=== PATIENT | female | born 1970 | race Caucasian/White ===

== ENCOUNTER → 2017-02-04 | Outpatient (CLI) | payer MEDICARE, OTHER ==
--- NOTE | 2017-02-04 11:09 | CT ---
EXAMINATION TYPE: CT soft tissue neck wo con DATE OF EXAM: 02/04/2017 HISTORY: Lump under chin, swelling, mass, R 22.1 COMPARISON: NONE CT DLP: 527.5 mGycm. Automated Exposure Control for Dose Reduction was Utilized. TECHNIQUE: CT scan of the neck is performed without contrast, axial images are obtained, coronal and sagittal reformatted images are reviewed. FINDINGS: Airway: No gross abnormality seen. Parotid/submandibular glands: No gross abnormality seen. Carotid/Vascular Structures: No abnormality evident on this noncontrast exam. Osseous Structures: Degenerative disc changes are noted in the visualized spine. Midline fusion anoma ly at C1 posteriorly is noted. Other: Multiple nonenlarged lymph nodes are present within the neck. No discrete mass evident in the submandibular location to account for patient's symptoms. Small nonpathologic nodes are present at th is level. IMPRESSION: No significant abnormality is seen.
== END | disposition home or self-care (01) ==
LOC: RADCTMAIN 09:19
PROVIDERS: ATTEND Family Medicine
DX: R22.1 Localized swelling, mass and lump, neck (principal)
CPT/HCPCS: 70490

== ENCOUNTER 2017-02-13 16:52 | Emergency (ER) | payer MEDICARE, OTHER ==
[2017-02-13 17:15] VITALS: RESP 18
--- NOTE | 2017-02-13 18:07 | ED ---
Skin/Abscess/FB HPI - General Chief complaint: Skin/Abscess/Foreign Body Stated complaint: Lump on neck Time Seen by Provider: 02/13/17 17:49 Source: patient, RN notes reviewed, old records reviewed Mode of arrival: ambulatory Limitations: no limitations - History of Present Illness Initial comments: This is a 46-year-old female presenting with to the with mother with chief complaint of a lump over her neck. Patient reports that they've had this lump for the past few weeks. They did see her primary care provider or Center in for a CAT scan. They state of the CAT scan was reviewed and negative. They report that over the past 24 hours patient has been complaining of pain of the lump over her neck. She reports that prior to that she had no pain. She denies any fever or chills or any other associated symptoms. She denies any difficulty swallowing. They report that they have a history of laryngeal cancer in her family and are concerned about. Patient is developmentally disabled. Patient is scheduled to have an ultrasound of her neck. Patient's mother reports that they're concerned that if her pain seems to get worse over the weekend they will not be able to see their primary care provider. - Related Data Home Medications Medication Instructions Recorded Confirmed Levothyroxine Sodium [Synthroid] 50 mcg PO DAILY 03/03/16 02/13/17 Cetirizine HCl [Zyrtec] 10 mg PO HS 02/13/17 02/13/17 Metoprolol Succinate (ER) [Toprol 12.5 mg PO DAILY 02/13/17 02/13/17 XL] Allergies Allergy/AdvReac Type Severity Reaction Status Date / Time bacitracin Allergy Rash/Hives Verified 02/13/17 18:17 [From Neosporin ([id number])] bacitracin zinc Allergy Rash/Hives Verified 02/13/17 18:17 [From Neosporin ([id number])] levofloxacin [From Levaquin] Allergy Rash/Hives Verified 02/13/17 18:17 neomycin sulfate Allergy Rash/Hives Verified 02/13/17 18:17 [From Neosporin ([id number])] polymyxin B Allergy Rash/Hives Verified 02/13/17 18:17 [From Neosporin ([id number])] Review of Systems ROS Statement: Those systems with pertinent positive or pertinent negative responses have been documented in the HPI. ROS Other: All systems not noted in ROS Statement are negative. Past Medical History Past Medical History: Coronary Artery Disease (CAD), Hypertension, Thyroid Disorder Additional Past Medical History / Comment(s): mentally impared History of Any Multi-Drug Resistant Organisms: None Reported Past Surgical History: Orthopedic Surgery Additional Past Surgical History / Comment(s): Fx Lt ankle-sx, skin lesions removed back and slin lesion removed from rt. butler Past Anesthesia/Blood Transfusion Reactions: No Reported Reaction Past Psychological History: No Psychological Hx Reported Smoking Status: Never smoker Past Alcohol Use History: None Reported Past Drug Use History: None Reported - Past Family History Father Family Medical History: Cancer, Hyperlipidemia, Hypertension, Myocardial Infarction ([place]) Additional Family Medical History / Comment(s): skin CA nose Mother Family Medical History: Hyperlipidemia, Hypertension General Exam - General Exam Comments Initial Comments: 46-year-old female. Patient does not appear to be in any acute distress. Limitations: no limitations General appearance: alert, in no apparent distress Head exam: Present: atraumatic, normocephalic, normal inspection Eye exam: Present: normal appearance, PERRL, EOMI. Absent: scleral icterus, conjunctival injection, periorbital swelling ENT exam: Present: normal exam, mucous membranes moist Neck exam: Present: normal inspection, tenderness (Patient reports tenderness over the superficial lump underneath her neck between her children and end of her neck. No redness or warmth to the neck.). Absent: meningismus, lymphadenopathy Respiratory exam: Present: normal lung sounds bilaterally. Absent: respiratory distress, wheezes, rales, rhonchi, stridor Cardiovascular Exam: Present: regular rate, normal rhythm, normal heart sounds. Absent: systolic murmur, diastolic murmur, rubs, gallop, clicks GI/Abdominal exam: Present: soft, normal bowel sounds. Absent: distended, tenderness, guarding, rebound, rigid Extremities exam: Present: normal inspection, full ROM, normal capillary refill. Absent: tenderness, pedal edema, joint swelling, calf tenderness Back exam: Present: normal inspection Neurological exam: Present: alert, oriented X3, CN II-XII intact Psychiatric exam: Present: normal affect, normal mood Skin exam: Present: warm, dry, intact, normal color. Absent: rash Course Vital Signs 02/13/17 17:09 Temperature 98.1 F Pulse Rate 102 H Respiratory 18 Rate Blood Pressure 134/82 O2 Sat by Pulse 98 Oximetry Medical Decision Making - Medical Decision Making This is a 46-year-old female presenting with to the with mother with chief complaint of a lump over her neck. Patient reports that they've had this lump for the past few weeks. They did see her primary care provider or Center in for a CAT scan. They state of the CAT scan was reviewed and negative. They report that over the past 24 hours patient has been complaining of pain of the lump over her neck. She reports that prior to that she had no pain. She denies any fever or chills or any other associated symptoms. She denies any difficulty swallowing. Ultrasound was reviewed and is consistent with a lipoma. Again patient has no other evidence of erythema or firmness to the neck mass. Discussion is follow-up with her primary care provider Juliana for her to surgery to have it removed. Patient states a mother and patient agree to plan will comply. Return parameters were discussed. - Radiology Data Radiology results: report reviewed Patient complains of a palpable solid oval soft tissue masses eyes are closed concerning tissue the size of 2.9 x 2.8 x 1.1 cm. The oval shaped mass is consistent with a lipoma. Sonographic features are benign. Disposition Clinical Impression: Lipoma of neck Disposition: HOME SELF-CARE Condition: Good Instructions: Lipoma (ED) Additional Instructions: Patient advised to follow-up with her primary care provider regards to surgical removal of the lipoma. This is a benign growth. Recommend take Motrin or Tylenol for further pain. Return to the emergency department if there are any alarming signs or symptoms that occur including shortness of breath or difficulty swallowing. Referrals: Rea Donovan DO [Primary Care Provider] - 1-2 days Time of Disposition: 18:59
--- NOTE | 2017-02-13 18:52 | US ---
EXAMINATION TYPE: US soft tissue neck DATE OF EXAM: 02/13/2017 COMPARISON: NONE CLINICAL HISTORY: Pain. EC patient with palpable inferior to chin and noted x 1 month. Patient compla ined of pain at palpable. Tech Impression: at patient's c/o palpable is solid, oval, soft tissue mass isoechoic to surrounding neck tissue with size of palpable = 2.9 x 2.8 x 1.1cm. IMPRESSION: There is an oval-shaped solid mass in the area of concern at the chin. Margins are sharp and sonograp hic features are consistent with a lipoma. Sonographic features are benign.
[2017-02-13 19:24] VITALS: BP 155/84; PULSE 90; TEMP 97.9
== END 2017-02-13 19:24 | disposition home or self-care (01) ==
LOC: EC 16:52
DX: D17.0 Benign lipomatous neoplasm of skin and subcutaneous tissue of head, face and neck (principal); E07.9 Disorder of thyroid, unspecified; I10 Essential (primary) hypertension; I25.10 Atherosclerotic heart disease of native coronary artery without angina pectoris; Z88.1 Allergy status to other antibiotic agents; Z79.899 Other long term (current) drug therapy
CPT/HCPCS: 76536; 99283

== ENCOUNTER 2020-04-22 17:18 | Inpatient (IN) | payer MEDICARE, OTHER ==
[2020-04-22] MEDS ORDERED: ONDANSETRON 4 MG/2 ML VIAL IVP STA (18:33)
[2020-04-22] MEDS ORDERED: KETOROLAC 15 MG/ML 1 ML VIAL IVP STA (18:33)
[2020-04-22] MEDS ORDERED: SODIUM CHLORIDE 0.9% 1,000 ML IV STA (18:33)
--- NOTE | 2020-04-22 18:55 | ED ---
Abdominal Pain HPI - General Source: patient, family Mode of arrival: wheelchair <Salima Carballo - Last Filed: 04/22/20 21:48> <Melissa Torrezah Pramod - Last Filed: 04/23/20 13:05> - General Chief Complaint: Abdominal Pain Stated Complaint: Abd pain, vomiting Time Seen by Provider: 04/22/20 18:02 - History of Present Illness Initial Comments: 49-year-old female patient presents to the emergency department today for evaluation of vomiting and abdominal pain. Mother states that this afternoon patient developed vomiting after eating lunch. States that she had her use of oral meet and anemia sandwich with chips. States that she's had 2-3 episodes of vomiting is complaining of generalized abdominal pain. Patient reports that the pain is in her upper abdomen mostly. They deny any constipation or diarrhea. Last bowel movement was yesterday. They deny any hematochezia, melena, hematemesis. He denies any fever or chills. She's had no previous abdominal surgeries. She does have a developmental delay and lives at home with her mot her. He denies any chance of . Patient denies any recent rash, cough, shortness of breath, chest pain, back pain, numbness, tingling, dizziness, weakness, hematuria, dysuria, urinary urgency, urinary frequency, headache, visual changes, or any other complaints. (Salima Carballo) - Related Data Home Medications Medication Instructions Recorded Confirmed Levothyroxine Sodium [Synthroid] 50 mcg PO DAILY 03/03/16 04/22/20 Cetirizine HCl [Zyrtec] 10 mg PO HS 02/13/17 04/22/20 Cholecalciferol [Vitamin D3 (25 2,000 unit PO MOTUWETHFR 04/22/20 04/22/20 Mcg = 1000 Iu)] Medroxyprogesterone Acetate 150 mg IM Q90D 04/22/20 04/22/20 [Depo-Provera] Potassium Chloride ER [K-Dur 10] 10 meq PO DAILY PRN 04/22/20 04/22/20 Unknown Water Pill 1 tab PO DAILY PRN 04/22/20 04/22/20 Allergies Allergy/AdvReac Type Severity Reaction Status Date / Time bacitracin Allergy Rash/Hives Verified 04/22/20 21:29 [From Neosporin ([id number])] bacitracin zinc Allergy Rash/Hives Verified 04/22/20 21:29 [From Neosporin ([id number])] levofloxacin [From Levaquin] Allergy Rash/Hives Verified 04/22/20 21:29 neomycin sulfate Allergy Rash/Hives Verified 04/22/20 21:29 [From Neosporin ([id number])] polymyxin B Allergy Rash/Hives Verified 04/22/20 21:29 [From Neosporin ([id number])] Review of Systems ROS Other: All systems not noted in ROS Statement are negative. <Salima Carballo - Last Filed: 04/22/20 21:48> ROS Other: All systems not noted in ROS Statement are negative. <Kathy Torrez - Last Filed: 04/23/20 13:05> ROS Statement: Those systems with pertinent positive or pertinent negative responses have been documented in the HPI. Past Medical History Past Medical History: Coronary Artery Disease (CAD), Hypertension, Thyroid Disorder Additional Past Medical History / Comment(s): mentally impared History of Any Multi-Drug Resistant Organisms: None Reported Past Surgical History: Orthopedic Surgery Additional Past Surgical History / Comment(s): Fx Lt ankle-sx, skin lesions removed back and slin lesion removed from rt. butler Past Anesthesia/Blood Transfusion Reactions: No Reported Reaction Past Psychological History: No Psychological Hx Reported Smoking Status: Never smoker Past Alcohol Use History: None Reported Past Drug Use History: None Reported - Past Family History Father Family Medical History: Cancer, Hyperlipidemia, Hypertension, Myocardial Infarction ([place]) Additional Family Medical History / Comment(s): skin CA nose Mother Family Medical History: Hyperlipidemia, Hypertension <Salima Carballo - Last Filed: 04/22/20 21:48> General Exam General appearance: alert, in no apparent distress, other (This is a well- developed, well-nourished adult female patient in no acute distress. Vital signs upon presentation are temperature 97.5F, pulse 103, respirations 19, blood pressure 150/83, pulse ox 98% on room air.) Eye exam: Present: normal appearance, PERRL, EOMI. Absent: scleral icterus, conjunctival injection, periorbital swelling ENT exam: Present: normal exam, normal oropharynx, mucous membranes moist Respiratory exam: Present: normal lung sounds bilaterally. Absent: respiratory distress, wheezes, rales, rhonchi, stridor Cardiovascular Exam: Present: regular rate, normal rhythm, normal heart sounds. Absent: systolic murmur, diastolic murmur, rubs, gallop, clicks GI/Abdominal exam: Present: soft, tenderness (Generalized, worse over the upper abdomen), normal bowel sounds. Absent: distended, guarding, rebound, rigid Neurological exam: Present: alert, oriented X3, CN II-XII intact Psychiatric exam: Present: normal affect, normal mood Skin exam: Present: warm, dry, intact, normal color. Absent: rash <Salima Carballo - Last Filed: 04/22/20 21:48> Course Vital Signs 04/22/20 04/22/20 04/22/20 17:30 18:32 19:37 Temperature 97.5 F L Pulse Rate 103 H 93 Respiratory 19 18 22 Rate Blood Pressure 150/83 146/72 O2 Sat by Pulse 98 95 Oximetry 04/22/20 21:41 Temperature 98.8 F Pulse Rate 108 H Respiratory 20 Rate Blood Pressure 165/95 O2 Sat by Pulse 95 Oximetry Medical Decision Making - Lab Data Result diagrams: 04/22/20 19:17 04/22/20 19:17 - EKG Data -: EKG Interpreted by Tn - Radiology Data Radiology results: report reviewed, image reviewed <SuzetteilsaSalima - Last Filed: 04/22/20 21:48> - Lab Data Result diagrams: 04/23/20 05:36 04/22/20 19:17 <Kathy Torrez - Last Filed: 04/23/20 13:05> - Medical Decision Making 49-year-old female patient who does have a developmental delay, here with mother for evaluation of abdominal pain and vomiting. Mother states that symptoms started just this afternoon. She has had 2-3 episodes of vomiting. Physical examination did reveal generalized abdominal tenderness worse over the upper abdomen. Labs reviewed and did reveal elevated white blood cell count at 16,000. She also had elevated lipase at greater than 20,000. CT of the abdomen and pelvis was ordered and showed fat stranding around the pancreas consistent with pancreatitis but no other abnormalities. Patient is given IV fluids and pain medications. Upon reevaluation she is resting comfortable in bed. Shortly after her CAT scan patient did start to cough and complain of nausea, mother was concerned for contrast ALLERGY so she was given medication for this. She had no rash, no wheezing, and seemed to calm down when talking to her. We will admit to the hospital for pancreatitis could obtain ultrasound in the morning. IV fluids and pain medicines are provided. Parent and patient verbalize understanding and agree with this plan. (Salima Carballo) I was available for consultation in the emergency department. The history and physical exam were done by the midlevel provider. I was consulted for this patients care. I reviewed the case with the midlevel provider and based on their presentation of the patient, I agree with the assessment, medical decision making and plan of care as documented. Chart was dictated using [employer] dictation software. Attempts were made to correct any dictation errors however some typographical errors may persist. Patient was seen during a national state of emergency due to the Covid-19 pandemic. (Kathy Torrez) - Lab Data Lab Results 04/22/20 04/22/20 04/22/20 Range/Units 19:17 19:17 19:17 WBC 16.3 H (3.8-10.6) k/uL RBC 5.13 (3.80-5.40) m/uL Hgb 14.0 (11.4-16.0) gm/dL Hct 44.4 (34.0-46.0) % MCV 86.7 (80.0-100.0) fL MCH 27.3 (25.0-35.0) pg MCHC 31.5 (31.0-37.0) g/dL RDW 13.6 (11.5-15.5) % Plt Count 289 (150-450) k/uL Neutrophils % 87 % Lymphocytes % 7 % Monocytes % 5 % Eosinophils % 1 % Basophils % 0 % Neutrophils # 14.3 H (1.3-7.7) k/uL Lymphocytes # 1.1 (1.0-4.8) k/uL Monocytes # 0.8 (0-1.0) k/uL Eosinophils # 0.1 (0-0.7) k/uL Basophils # 0.1 (0-0.2) k/uL Sodium (137-145) mmol/L Potassium (3.5-5.1) mmol/L Chloride (98-107) mmol/L Carbon Dioxide (22-30) mmol/L Anion Gap mmol/L BUN (7-17) mg/dL Creatinine (0.52-1.04) mg/dL Est GFR (CKD-EPI)AfAm (>60 ml/min/1.73 sqM) Est GFR (CKD-EPI)NonAf (>60 ml/min/1.73 sqM) Glucose (74-99) mg/dL Calcium (8.4-10.2) mg/dL Total Bilirubin (0.2-1.3) mg/dL AST (14-36) U/L ALT (4-34) U/L Alkaline Phosphatase (38-126) U/L Troponin I (0.000-0.034) ng/mL Total Protein (6.3-8.2) g/dL Albumin (3.5-5.0) g/dL Lipase (23-300) U/L Urine Color Yellow Urine Appearance Clear (Clear) Urine pH 5.5 (5.0-8.0) Ur Specific [place] 1.024 (1.001-1.035) Urine Protein 1+ H (Negative) Urine Glucose (UA) 2+ H (Negative) Urine Ketones 2+ H (Negative) Urine Blood Trace H (Negative) Urine Nitrite Negative (Negative) Urine Bilirubin Negative (Negative) Urine Urobilinogen <2.0 (<2.0) mg/dL Ur Leukocyte Esterase Trace H (Negative) Urine RBC 1 (0-5) /hpf Urine WBC 8 H (0-5) /hpf Ur Squamous Epith Cells 2 (0-4) /hpf Urine Bacteria Rare H (None) /hpf Urine Mucus Few H (None) /hpf Urine HCG, Qual Not Detected (Not Detectd) 04/22/20 04/22/20 Range/Units 19:17 19:17 WBC (3.8-10.6) k/uL RBC (3.80-5.40) m/uL Hgb (11.4-16.0) gm/dL Hct (34.0-46.0) % MCV (80.0-100.0) fL MCH (25.0-35.0) pg MCHC (31.0-37.0) g/dL RDW (11.5-15.5) % Plt Count (150-450) k/uL Neutrophils % % Lymphocytes % % Monocytes % % Eosinophils % % Basophils % % Neutrophils # (1.3-7.7) k/uL Lymphocytes # (1.0-4.8) k/uL Monocytes # (0-1.0) k/uL Eosinophils # (0-0.7) k/uL Basophils # (0-0.2) k/uL Sodium 140 (137-145) mmol/L Potassium 4.4 (3.5-5.1) mmol/L Chloride 107 (98-107) mmol/L Carbon Dioxide 20 L (22-30) mmol/L Anion Gap 13 mmol/L BUN 16 (7-17) mg/dL Creatinine 0.72 (0.52-1.04) mg/dL Est GFR (CKD-EPI)AfAm >90 (>60 ml/min/1.73 sqM) Est GFR (CKD-EPI)NonAf >90 (>60 ml/min/1.73 sqM) Glucose 183 H (74-99) mg/dL Calcium 9.6 (8.4-10.2) mg/dL Total Bilirubin 1.3 (0.2-1.3) mg/dL AST 26 (14-36) U/L ALT 14 (4-34) U/L Alkaline Phosphatase 100 (38-126) U/L Troponin I <0.012 (0.000-0.034) ng/mL Total Protein 8.2 (6.3-8.2) g/dL Albumin 4.3 (3.5-5.0) g/dL Lipase >47149 H (23-300) U/L Urine Color Urine Appearance (Clear) Urine pH (5.0-8.0) Ur Specific [place] (1.001-1.035) Urine Protein (Negative) Urine Glucose (UA) (Negative) Urine Ketones (Negative) Urine Blood (Negative) Urine Nitrite (Negative) Urine Bilirubin (Negative) Urine Urobilinogen (<2.0) mg/dL Ur Leukocyte Esterase (Negative) Urine RBC (0-5) /hpf Urine WBC (0-5) /hpf Ur Squamous Epith Cells (0-4) /hpf Urine Bacteria (None) /hpf Urine Mucus (None) /hpf Urine HCG, Qual (Not Detectd) - EKG Data EKG Comments: EKG obtained in 1902 shows normal sinus rhythm with a ventricular rate of 97, SD interval 152, QR spiritism 86, QT 356, QTC 452. No evidence of ST elevation or depression. (aSlima Carballo) - Radiology Data CT abdomen and pelvis with contrast was obtained. Report was reviewed in its entirety. Impression by Dr. Toro shows some fluid and fat stranding in the retroperitoneum around the pancreas and left and right anterior pararenal space. Minimal fluid in the pelvis. This could relate to pancreatitis. (Salima Carballo) Disposition Decision to Admit Reason: Admit from EC <Salima Carballo - Last Filed: 04/22/20 21:48> <Kathy Torrez - Last Filed: 04/23/20 13:05> Clinical Impression: Pancreatitis Disposition: ADMITTED IP TO THIS HOSP Condition: Serious
[2020-04-22 19:29] LABS: Basophils # (A) 0.1 k/uL (0-0.2); Basophils % (A) 0 %; Eosinophils # (A) 0.1 k/uL (0-0.7); Eosinophils % (A) 1 %; HCT 44.4 % (34.0-46.0); Lymphocytes # (A) 1.1 k/uL (1.0-4.8); Lymphocytes % (A) 7 %; MCH 27.3 pg (25.0-35.0); MCHC 31.5 g/dL (31.0-37.0); MCV 86.7 fL (80.0-100.0); Mean Platelet Volume 9.2; Monocytes # (A) 0.8 k/uL (0-1.0); Monocytes % (A) 5 %; Neutrophils # (A) 14.3 k/uL (1.3-7.7); Neutrophils % (A) 87 %; Platelet Count 289 k/uL (150-450); RBC 5.13 m/uL (3.80-5.40); RDW 13.6 % (11.5-15.5); WBC 16.3 k/uL (3.8-10.6)
[2020-04-22 19:35] LABS: ALT 14 U/L (4-34); AST 26 U/L (14-36); African American GFR (CKD) >90 (>60 ml/min/1.73 sqM); Albumin 4.3 g/dL (3.5-5.0); Alkaline Phosphatase 100 U/L (38-126); Anion Gap 13 mmol/L; Blood Urea Nitrogen 16 mg/dL (7-17); Calcium 9.6 mg/dL (8.4-10.2); Carbon Dioxide 20 mmol/L (22-30); Chloride 107 mmol/L (98-107); Glucose 183 mg/dL (74-99); Non-African American GFR(CKD) >90 (>60 ml/min/1.73 sqM); Potassium 4.4 mmol/L (3.5-5.1); Sodium 140 mmol/L (137-145); Total Bilirubin 1.3 mg/dL (0.2-1.3); Total Protein 8.2 g/dL (6.3-8.2)
[2020-04-22 19:52] LABS: Appearance,Urine Clear (Clear); Bacteria,Urine Rare /hpf; Bilirubin,Urine Negative (Negative); Blood,Urine Trace (Negative); Color,Urine Yellow; Glucose,Urine (UA) 2+ (Negative); Leukocyte Esterase,Urine Trace (Negative); Mucus,Urine Few /hpf; Nitrite,Urine Negative (Negative); PH, Urine 5.5 (5.0-8.0); Protein,Urine 1+ (Negative); RBC,Urine 1 /hpf (0-5); Specific Gravity,Urine 1.024 (1.001-1.035); Squamous Epithelial Cell,Urine 2 /hpf (0-4); Urobilinogen,Urine <2.0 mg/dL (<2.0); WBC,Urine 8 /hpf (0-5)
[2020-04-22 19:56] LABS: Ketones,Urine 2+ (Negative)
[2020-04-22] MEDS ORDERED: methylPREDNISolone SOD SUCCI 125 MG/2 ML VIAL IV STA (20:20)
[2020-04-22] MEDS ORDERED: FAMOTIDINE 20 MG/2 ML VIAL IV STA (20:20)
[2020-04-22] MEDS ORDERED: diphenhydrAMINE 50 MG/ML 1 ML VIAL IVP STA (20:20)
--- NOTE | 2020-04-22 20:47 | CT ---
EXAMINATION TYPE: CT abdomen pelvis w con DATE OF EXAM: 04/22/2020 COMPARISON: None HISTORY: Generalized abdominal pain and vomiting. CT DLP: 3153.9 mGycm Automated exposure control for dose reduction was used. CONTRAST: Performed with IV Contrast, patient injected with 100ml mL of Isovue 300. There is some mild atelectasis at the lung bases. Heart is borderline enlarged. Liver spleen stomach gallbladder appear intact. There is some fat stranding around the pancreas exten ding into the small bowel mesentery. There is no adrenal mass. Kidneys show satisfactory contrast opacification. There is no hydronephrosi s. Delayed images show normal renal excretion. There is 1 cm cortical cyst upper pole left kidney. Th ere is no retroperitoneal adenopathy. There is mild free fluid in the pelvis. Bladder distends smooth ly. There is no inguinal hernia. There is no ascites. There is no evidence of a bowel obstruction. Th ere is no free air. Lumbar vertebra have normal spacing and alignment. Posterior elements are intact. Bony pelvis appears intact. Hip joints appear normal. Uterus is anteverted. There is no evidence of a pelvic mass. Appendix is not definitely seen. There is no sign of thickened appendix. IMPRESSION: There is some fluid and fat stranding in the retroperitoneum around the pancreas and left and right a nterior pararenal space. Minimal fluid in the pelvis. This could relate to pancreatitis.
[2020-04-22] MEDS ORDERED: SODIUM CHLORIDE 0.9% 1,000 ML IV ONE (20:56)
[2020-04-22] MEDS ORDERED: NALOXONE 0.4 MG/ML 1 ML VIAL IV PRN (21:07)
[2020-04-22] MEDS ORDERED: ONDANSETRON 4 MG/2 ML VIAL IVP PRN (21:07)
[2020-04-22] MEDS: SODIUM CHLORIDE 0.9% 1,000 ML IV SCH (21:17)
[2020-04-23] MEDS: MORPHINE SULFATE 4 MG/ML SYRINGE IV PRN ×2 (00:23→05:09)
[2020-04-23] MEDS: SODIUM CHLORIDE 0.9% 1,000 ML IV SCH ×4 (03:58→22:24)
[2020-04-23 06:06] LABS: Basophils % (A) 0 %; Eosinophils # (A) 0.1 k/uL (0-0.7); Eosinophils % (A) 0 %; HCT 39.8 % (34.0-46.0); HGB 12.8 gm/dL (11.4-16.0); Lymphocytes # (A) 1.2 k/uL (1.0-4.8); Lymphocytes % (A) 7 %; MCH 27.9 pg (25.0-35.0); Monocytes # (A) 0.4 k/uL (0-1.0); Monocytes % (A) 2 %; Neutrophils # (A) 16.5 k/uL (1.3-7.7); Neutrophils % (A) 91 %; Platelet Count 331 k/uL (150-450); RBC 4.58 m/uL (3.80-5.40); RDW 13.7 % (11.5-15.5); WBC 18.2 k/uL (3.8-10.6)
--- NOTE | 2020-04-23 09:23 | US ---
EXAMINATION TYPE: US abdomen limited DATE OF EXAM: 04/23/2020 COMPARISON: CT abdomen pelvis 04/22/2020 CLINICAL HISTORY: Acute Pancreatitis. Pancreatitis exam limited due to body habitus EXAM MEASUREMENTS: Liver Length: 15.7 cm Gallbladder Wall: .2 cm CBD: .7 cm Right Kidney: 9.0 x 4.8 x 4.2 cm Pancreas: Obscured by bowel gas Liver: Increased attenuation Gallbladder: No stones seen Evidence for sonographic Hanson's sign: No CBD: Upper limits Right Kidney: No hydronephrosis or masses seen IMPRESSION: 1. Moderate fatty infiltration of the liver. 2. No acute changes to account for pain. Exam has limitation limiting evaluation for acute pancreatit is. Suspicious changes not identified by ultrasound.
[2020-04-23] MEDS: CHOLECALCIFEROL 1,000 UNIT TAB PO SCH (12:11)
[2020-04-23] MEDS ORDERED: ALPRAZolam 0.25 MG TAB PO PRN (14:53)
[2020-04-23] MEDS ORDERED: POTASSIUM CHLORIDE ER 10 MEQ TAB.ER.PRT PO PRN (14:53)
[2020-04-23] MEDS ORDERED: BUMETANIDE 1 MG TAB PO PRN (14:53)
[2020-04-23] MEDS ORDERED: MEROPENEM 1 GM in SODIUM CHLORIDE 0.9% 100 ML IVPB ONE (16:00)
[2020-04-23] MEDS: HEPARIN SODIUM,PORCINE 5,000 UNIT/ML 1 ML VIAL SQ SCH ×2 (16:23→20:23)
[2020-04-23] MEDS: PANTOPRAZOLE 40 MG/10 ML VIAL IVP SCH ×2 (16:23→20:23)
--- NOTE | 2020-04-23 16:52 | HP ---
HISTORY AND PHYSICAL DATE OF SERVICE: 04/23/2020 CHIEF COMPLAINT: Abdominal pain. HISTORY OF PRESENT ILLNESS: This 49-year-old woman with a past medical history of multiple medical problems, including CAD, hypertension, hypothyroidism, history of being mentally challenged, being followed by Dr. Donovan in the outpatient setting, was complaining of abdominal pain. The pain was felt in the anterior part of the abdomen. The patient's mother stated that the patient also had vomiting after eating lunch. The patient apparently had 2 to 3 episodes of vomiting as well as generalized abdominal pain. The patient is unable to give a detailed history. Most of the history is taken from my discussion with staff and review of the charts at this time. In the ER, the patient had multiple evaluations, including amylase and lipase. Lipase was elevated to more than 20,000 and 8794. WBC was elevated at 16.2. The patient also had a CT scan of the abdomen and pelvis which showed evidence of fluid and fat stranding in the retroperitoneum around the pancreas, left and right perirenal space also, indicating acute pancreatitis. The patient is being closely monitored. There is no history of any fever, rigor or chills. PAST MEDICAL HISTORY: History of CAD, hypertension, hypothyroidism, mentally challenged. MEDICATIONS: Bumex 1 mg p.r.n., vitamin D3, K-Dur 10 mEq, Depo-Provera, Synthroid, Zyrtec. ALLERGIES: BACITRACIN, LEVAQUIN, NEOMYCIN, POLYMYXIN. FAMILY HISTORY: History of cancer, hypertension, hyperlipidemia, history of myocardial infarction, skin cancer. SOCIAL HISTORY: No history of smoking. No history of alcohol intake. REVIEW OF SYSTEMS: Review of systems could not be taken at length because of the patient's mental challenges. PHYSICAL EXAMINATION: VITAL SIGNS: Pulse is 104, blood pressure 142/85, respiration 16, temperature 98.1, pulse ox 90% on room air. HEENT: Conjunctivae normal. Oral mucosa moist. NECK: No jugular venous distention. No carotid bruit. No lymph node enlargement. CARDIOVASCULAR SYSTEM: S1, S2 muffled. RESPIRATORY SYSTEM: Breath sounds diminished at the bases. A few scattered rhonchi. ABDOMEN: Soft, obese. Diffuse tenderness present. No guarding. No rigidity. No mass palpable. LEGS: No edema. No swelling. NERVOUS SYSTEM: Higher functions as mentioned earlier. Moves all 4 limbs. No focal motor or sensory deficit. LYMPHATICS: No lymph node palpable in neck, axillae or groin. SKIN: No ulcer, rash, bleeding. JOINTS: No active deforming arthropathy. LABS: WBC 18.2, 12.8 sodium 140, potassium 4.4. Lipase is more than 20,000 and 8794. ASSESSMENT: 1. Acute severe pancreatitis with severe abdominal pain. 2. Increased white count. 3. Coronary artery disease. 4. Hypertension. 5. Hypothyroidism. 6. Mentally challenged. 7. History of degenerative joint disease. 8. Obesity with body mass index 47.6. 9. FULL CODE. RECOMMENDATIONS AND DISCUSSION: In this 49-year-old woman who presented with multiple complex medical issues, we will monitor the patient closely, continue the current medications, continue symptomatic treatment. Otherwise at this time I would recommend empiric antibiotics and gastroenterology consultation, symptomatic treatment, proton pump inhibitors. Guarded prognosis because of multiple complex medical issues. Further recommendations to follow. A copy of this dictation is being forwarded to Dr. Donovan, who is the primary physician. IgG and SAM levels were also ordered by Gastroenterology. MMODL / IJN: [id number] /
[2020-04-23] MEDS: HYDROmorphone 0.5 MG/0.5 ML SYRINGE IVP PRN ×2 (19:36→23:54)
[2020-04-23] MEDS: LORATADINE 10 MG TAB PO SCH (20:23)
[2020-04-23] MEDS: MEROPENEM 1 GM in SODIUM CHLORIDE 0.9% 100 ML IVPB SCH (23:53)
[2020-04-24 02:32] LABS: INR 1.01 (0.90-1.11); Prothrombin Time 10.8 sec (9.9-11.9)
[2020-04-24] MEDS: HYDROmorphone 0.5 MG/0.5 ML SYRINGE IVP PRN ×6 (03:07→21:42)
[2020-04-24] MEDS: LEVOTHYROXINE 50 MCG TAB PO SCH (05:59)
[2020-04-24] MEDS: SODIUM CHLORIDE 0.9% 1,000 ML IV SCH ×2 (06:00→11:41)
[2020-04-24 06:39] LABS: Basophils % (A) 0 %; Eosinophils % (A) 0 %; HCT 38.5 % (34.0-46.0); HGB 11.9 gm/dL (11.4-16.0); Lymphocytes % (A) 5 %; MCH 27.2 pg (25.0-35.0); MCHC 30.9 g/dL (31.0-37.0); MCV 88.1 fL (80.0-100.0); Mean Platelet Volume 7.3; Monocytes # (A) 0.8 k/uL (0-1.0); Monocytes % (A) 4 %; Neutrophils # (A) 17.5 k/uL (1.3-7.7); Neutrophils % (A) 90 %; Platelet Count 287 k/uL (150-450); RBC 4.37 m/uL (3.80-5.40); WBC 19.5 k/uL (3.8-10.6)
[2020-04-24] MEDS: HEPARIN SODIUM,PORCINE 5,000 UNIT/ML 1 ML VIAL SQ SCH ×2 (08:19→21:41)
[2020-04-24] MEDS: PANTOPRAZOLE 40 MG/10 ML VIAL IVP SCH ×2 (08:19→21:44)
[2020-04-24] MEDS: MEROPENEM 1 GM in SODIUM CHLORIDE 0.9% 100 ML IVPB SCH ×3 (08:19→23:54)
--- NOTE | 2020-04-24 08:44 | CONS ---
CONSULTATION DATE OF SERVICE: April 23, 2020. REQUESTING PHYSICIAN: Dr. Donovan. REASON FOR CONSULTATION: Acute pancreatitis. HISTORY OF PRESENT ILLNESS: The patient is a 49-year-old pleasant white female with history of hypertension, hypothyroidism, mental retardation, was admitted to hospital because of acute onset of severe abdominal pain mostly in the left upper quadrant and epigastric area for the last 2 days duration. She had several episodes of nausea and vomiting. She hence came to the emergency room and was noted to have elevated amylase and lipase consistent with acute pancreatitis. Lipase was more than 20,000 and amylase was 8994. She never had these symptoms in the past. She reports no history of alcohol use. No family history of acute pancreatitis. She did have a CT of the abdomen and pelvis done that showed evidence of fluid with fat stranding in the retroperitoneum and the pancreas consistent with acute uncomplicated pancreatitis. The pain is feeling somewhat better this morning. She remains n.p.o. complains of being thirsty. She denies any fever, chills, night sweats. PAST MEDICAL HISTORY: Significant for mentally challenged, hypertension, hypothyroidism and coronary artery disease and allergies. MEDICATIONS: Medications at home: Bumex, vitamin D3, K-Dur, Depo-Provera, Synthroid, Zyrtec. ALLERGIES: BACITRACIN, NEOMYCIN, POLYMYXIN, AND LEVAQUIN. SOCIAL HISTORY: No smoking. No alcohol use. FAMILY HISTORY: Mother has hypertension and hyperlipidemia. Father had skin cancer. REVIEW OF SYSTEMS: CARDIOPULMONARY: She denies any chest pain, no shortness of breath. : No dysuria or hematuria. MUSCULOSKELETAL unremarkable. SKIN unremarkable. ENDOCRINE unremarkable. PSYCHIATRIC unremarkable. NEUROLOGY: Unremarkable. ENT: Vision unremarkable. GI as mentioned above. CONSTITUTIONAL: No recent weight loss. No fever, chills, night sweats. HEMATOLOGY: Unremarkable. PHYSICAL EXAMINATION: She appears comfortable. No apparent distress. Vital signs stable. Blood pressure 142/85, pulse is 104, temperature 98.1. HEENT examination unremarkable. Conjunctivae pink. Sclerae anicteric. Oral cavity no lesions. NECK: No JVD or lymph node enlargement. CHEST was clear to auscultation. HEART: Regular rate and rhythm. ABDOMEN: Soft. Bowel sounds are positive. Mild tenderness in the epigastric and left upper quadrant area. Rest of the abdomen was benign. EXTREMITIES: No pedal edema. SKIN no rashes. NEUROLOGIC: Alert and oriented x3. No focal deficits. LABS: Done yesterday: WBC 16.3, hemoglobin 14, platelets normal. Basic metabolic panel showed a BUN and creatinine normal. Lipase more than 20,000 and today lipase 8794. ALT/AST and T-bilirubin and alkaline phosphatase are completely within normal limits. Today WBC is 18.3. CT of the abdomen and pelvis did show evidence of fat stranding and edema of the retroperitoneal area in the pancreas consistent with acute pancreatitis. Ultrasound of the abdomen showed no gallstones but evidence of hepatic steatosis. IMPRESSION: 1. Acute pancreatitis first episode. The patient presented with severe epigastric pain for the last 2 days duration and noted to have elevated lipase consistent with acute pancreatitis. She does not have any history of alcohol use. Ultrasound did not show any evidence of gallstones and LFTs are within normal limits which makes it very unlikely we are dealing with biliary pancreatitis. At this time, etiology remains unclear. We will investigate further. 2. History of hypertension. 3. History of hypothyroidism. RECOMMENDATIONS: 1. Start on ice chips today and if her symptoms improve, we will start her on a clear liquid diet tomorrow morning. 2. Continue with aggressive IV hydration and pain control. 3. Obtain serum IgG 4 levels to evaluate for autoimmune pancreatitis and obtain fasting triglyceride levels. 4. Repeat lipase in the morning. 5. We will follow with you closely. Thank you for this consultation. MMADRIANAL / BELINDAN: [id number] /
[2020-04-24 09:43] LABS: African American GFR (CKD) 118.7 (60.0-200.0); Albumin 3.9 g/dL (3.80-4.90); Albumin/Globulin Ratio 1.56 (1.60-3.17); Anion Gap 8.3 mmol/L (4.00-12.00); BUN/Creat Ratio 21.43 Ratio (12.00-20.00); Carbon Dioxide 23.7 mmol/L (21.6-31.8); Chol/HDL Ratio 3.27; Globulin 2.5 g/dL (1.6-3.3); Non-African American GFR(CKD) 102.5 (60.0-200.0); Total Bilirubin 1.3 mg/dL (0.2-1.2); Total Protein 6.4 g/dL (6.2-8.2)
[2020-04-24] MEDS: CHOLECALCIFEROL 1,000 UNIT TAB PO SCH (11:40)
--- NOTE | 2020-04-24 14:07 | P.PN ---
Subjective Progress Note Date: 04/24/20 Principal diagnosis: Acute pancreatitis The patient was seen and examined sitting up at the bedside. She states her abdominal pain is better. She has not had any further vomiting this hospitalization. She denies any nausea or diarrhea. Today's amylase 292, lipase 403, and a negative, triglycerides 110, IgG4 pending. Objective - Vital Signs Vital signs: Vital Signs Temp 98.1 F 04/24/20 11:42 Pulse 103 H 04/24/20 11:42 Resp 20 04/24/20 11:42 BP 156/88 04/24/20 11:42 Pulse Ox 97 04/24/20 11:42 Intake & Output 04/23/20 04/24/20 04/24/20 18:59 06:59 18:59 Intake Total 1300 600 Balance 1300 600 Intake: Intake, IV Titration 1300 Amount Meropenem 1 gm In Sodium 100 Chloride 0.9% 100 ml @ 33 .3 mls/hr IVPB Q8HR DARIN Rx#:[id number] Sodium Chloride 0.9% 1, 1200 000 ml @ 150 mls/hr IV . Q6H40M DARIN Rx#:[id number] Oral 600 Other: Voiding Method Toilet Toilet Toilet # Voids 1 2 2 - Exam General appearance: The patient is alert, oriented, in no acute distress. Obese. HET: Head is normocephalic and atraumatic. Conjunctiva pink. Sclera anicteric. Neck: Supple without lymphadenopathy. Abdomen: Soft, nontender, nondistended with bowel sounds. No peritoneal signs. No palpable organomegaly or masses. Extremities: Normal skin color and turgor. No pedal edema. Neurological: Alert and oriented. Patient is mentally disabled. - Labs CBC & Chem 7: 04/24/20 06:13 04/24/20 06:13 Labs: Abnormal Lab Results - Last 24 Hours (Table) 04/24/20 04/24/20 04/24/20 Range/Units 06:13 06:13 06:13 WBC 19.5 H (3.8-10.6) k/uL MCHC 30.9 L (31.0-37.0) g/dL Neutrophils # 17.5 H (1.3-7.7) k/uL BUN/Creatinine Ratio 21.43 H (12.00-20.00) Ratio Glucose 126 H (70-110) mg/dL Calcium 8.0 L (8.7-10.3) mg/dL Total Bilirubin 1.3 H (0.2-1.2) mg/dL Albumin/Globulin Ratio 1.56 L (1.60-3.17) g/dL Amylase 292 H (23-121) U/L Lipase 403 H (14-63) U/L IgG3 103.0 H (11.0-85.0) mg/dL Assessment and Plan Assessment: 1. Acute pancreatitis versus episode. Patient presented with severe epigastric pain for the last 2 days duration noted to have elevated lipase consistent with acute pancreatitis. She does not have any history of alcohol use. Ultrasound did not show any evidence of gallstones and LFTs are within normal limits which makes it very unlikely we are dealing with biliary pancreatitis. At this time, etiology remains unclear. We will further investigate 2. History of hypertension 3. History of hypothyroidism Plan: 1. Start on clear liquid diet 2. Continue with aggressive IV hydration and pain control 3. Serum IgG4 level obtained and pending, to evaluate for autoimmune pancreatitis 4. Repeat amylase lipase in the morning 5. We will follow with you closely 6. Patient to follow-up in office after discharge The impression and plan of care has been dictated as directed. Dr. Dwayne Dickens I performed a history and examination of this patient, discussed the same with the dictator. I agree with the dictator's note ,documented as a scribe. Any additional findings or plans will be noted.
--- NOTE | 2020-04-24 21:44 | PN ---
PROGRESS NOTE DATE OF SERVICE: 04/24/2020 This 43-year-old woman who was admitted with acute severe pancreatitis, severe abdominal pain, is being closely monitored at this time. Gastroenterology following the patient closely. The patient has elevated amylase, lipase which is slightly improving at this time. Dr. Dickens is following the patient closely. IgG 3 was 103, slightly elevated. SAM was negative. Covid-19 was also negative. PHYSICAL EXAMINATION: Alert and oriented x3. The pulse is 103. Blood pressure 156/88, respiration 20, temperature 98.1, pulse ox 97% on room air. HEENT: Conjunctivae normal. CARDIOVASCULAR: S1, S2 normal. RESPIRATION: Breath sounds diminished in the bases. No rhonchi. No crackles. ABDOMEN: Soft. Mild diffuse tenderness. LEGS are no edema. No swelling. NERVOUS SYSTEM: No focal deficits. LABS: WBC 19.5. Other labs are noted. ASSESSMENT: 1. Acute severe pancreatitis with severe abdominal pain. 2. Increased WBC. 3. Coronary artery disease. 4. Hypertension. 5. Hypothyroidism. 6. Mentally challenged. 7. History of degenerative joint disease. 8. Obesity with body mass index 47.6. 9. FULL CODE. RECOMMENDATIONS AND DISCUSSION: I recommend to continue current medications, management and symptomatic treatment. Abdominal ultrasound did not show any evidence of cholelithiasis. We will continue to monitor along with gastroenterology. Advance diet once the patient is tolerant of foods. Further recommendation to follow. MMODL / BELINDAN: [id number] /
[2020-04-24] MEDS: LORATADINE 10 MG TAB PO SCH (21:45)
[2020-04-25] MEDS: HYDROmorphone 0.5 MG/0.5 ML SYRINGE IVP PRN ×3 (00:33→07:05)
[2020-04-25] MEDS: SODIUM CHLORIDE 0.9% 1,000 ML IV SCH ×3 (01:20→22:41)
[2020-04-25] MEDS: LEVOTHYROXINE 50 MCG TAB PO SCH (05:51)
[2020-04-25 06:10] LABS: Basophils # (A) 0.1 k/uL (0-0.2); Basophils % (A) 0 %; Eosinophils # (A) 0.1 k/uL (0-0.7); Eosinophils % (A) 0 %; HCT 38.5 % (34.0-46.0); HGB 11.8 gm/dL (11.4-16.0); Hypochromasia Slight; Lymphocytes # (A) 1.3 k/uL (1.0-4.8); Lymphocytes % (A) 6 %; MCH 27.3 pg (25.0-35.0); MCHC 30.5 g/dL (31.0-37.0); MCV 89.4 fL (80.0-100.0); Mean Platelet Volume 8.1; Monocytes # (A) 1.1 k/uL (0-1.0); Monocytes % (A) 5 %; Neutrophils # (A) 18.4 k/uL (1.3-7.7); Neutrophils % (A) 87 %; Platelet Count 302 k/uL (150-450); RBC 4.31 m/uL (3.80-5.40); RDW 13.9 % (11.5-15.5); WBC 21.2 k/uL (3.8-10.6)
[2020-04-25] MEDS: HEPARIN SODIUM,PORCINE 5,000 UNIT/ML 1 ML VIAL SQ SCH ×2 (08:17→20:16)
[2020-04-25] MEDS: PANTOPRAZOLE 40 MG/10 ML VIAL IVP SCH ×2 (08:17→20:17)
[2020-04-25] MEDS: MEROPENEM 1 GM in SODIUM CHLORIDE 0.9% 100 ML IVPB SCH ×2 (08:17→16:15)
[2020-04-25] MEDS: HYDROcodone/APAP 5-325MG 1 EACH TAB PO PRN ×2 (10:58→17:04)
[2020-04-25] MEDS: CHOLECALCIFEROL 1,000 UNIT TAB PO SCH (12:13)
--- NOTE | 2020-04-25 14:37 | P.PN ---
Subjective Progress Note Date: 04/25/20 Principal diagnosis: Acute pancreatitis The patient was seen and examined sitting up at the bedside sleeping however easily arousable. She states "tummy hurts" She has not had any further vomiting this hospitalization. She denies any nausea or diarrhea. Today's amylase and lipase are pending still, SAM negative, triglycerides 110, IgG4 normal, WBC 21.2. The patient has been afebrile. Objective - Vital Signs Vital signs: Vital Signs Temp 98.3 F 04/25/20 12:44 Pulse 100 04/25/20 12:44 Resp 18 04/25/20 12:44 BP 162/95 04/25/20 12:44 Pulse Ox 92 L 04/25/20 12:44 Intake & Output 04/24/20 04/25/20 04/25/20 18:59 06:59 18:59 Intake Total 600 1000 Balance 600 1000 Intake: Oral 600 1000 Other: Voiding Method Toilet Toilet # Voids 1 3 - Labs CBC & Chem 7: 04/25/20 05:32 04/24/20 06:13 Labs: Abnormal Lab Results - Last 24 Hours (Table) 04/25/20 Range/Units 05:32 WBC 21.2 H (3.8-10.6) k/uL MCHC 30.5 L (31.0-37.0) g/dL Neutrophils # 18.4 H (1.3-7.7) k/uL Monocytes # 1.1 H (0-1.0) k/uL Assessment and Plan Assessment: 1. Acute pancreatitis first episode. Patient presented with severe epigastric pain for the last 2 days duration noted to have elevated lipase consistent with acute pancreatitis. She does not have any history of alcohol use. Ultrasound did not show any evidence of gallstones and LFTs are within normal limits which makes it very unlikely we are dealing with biliary pancreatitis. At this time, etiology remains unclear. We will further investigate 2. Acute pancreatitis with leukocytosis likely related to acute pancreatitis. Patient started on antibiotics. 2. History of hypertension 3. History of hypothyroidism Plan: 1. Continue on clear liquid diet 2. Continue with aggressive IV hydration and pain control 3. Serum IgG4 level obtained to evaluate for autoimmune pancreatitis, normal result 4. Repeat amylase and lipase in the morning 5. Repeat CBC with diff in morning 6. Continue antibiotics 7. If no improvement tomorrow with symptoms and leukocytosis, will order repeat CAT scan of the abdomen 8. Judicial use of narcotics 9. We will follow with you closely 10. Patient to follow-up in office after discharge The impression and plan of care has been dictated as directed. Dr. Dwayne Dickens I performed a history and examination of this patient, discussed the same with the dictator. I agree with the dictator's note ,documented as a scribe. Any additional findings or plans will be noted.
--- NOTE | 2020-04-25 16:57 | PN ---
PROGRESS NOTE DATE OF SERVICE: 04/25/2020 This is a 49-year-old woman who was admitted with acute severe pancreatitis and severe abdominal pain, had increased WBC. The patient is being closely monitored at this time. No chest pain. No palpitations. No fever. PHYSICAL EXAMINATION: Alert and oriented x3. Pulse 100, blood pressure 160/90, respiration 18, temperature 98.8, pulse ox 98% on room air. HEENT: Conjunctivae normal. NECK: No jugular venous distension. CARDIOVASCULAR SYSTEM: S1, S2, muffled. RESPIRATORY: Breath sounds diminished at the bases. ABDOMEN: Soft, mild diffuse tenderness. LEGS:: No edema, no swelling. NERVOUS SYSTEM: No focal deficits. LABS: 21.2 otherwise, amylase, lipase yesterday 292 and 403. Today's labs are pending. ASSESSMENT: 1. Acute severe pancreatitis with severe abdominal pain. 2. Increased WBC. 3. History of coronary artery disease. 4. Hypertension. 5. Hypothyroidism. 6. Mentally challenged. 7. History of degenerative joint disease. 8. Obesity with body mass index of 47.6. 9. FULL CODE. RECOMMENDATION: Recommend to continue current medications, continue to monitor. Symptomatic treatment. Otherwise at this time, I would recommend repeat labs, symptomatic treatment. Advance diet. Cut down the pain medications. Guarded prognosis. Further recommendations to follow. MMODL / IJN: [id number] / MTDD
[2020-04-25 17:08] LABS: African American GFR (CKD) 124.9 (60.0-200.0); Albumin/Globulin Ratio 1.38 (1.60-3.17); Anion Gap 19.8 mmol/L (4.00-12.00); Calcium 8.4 mg/dL (8.7-10.3); Carbon Dioxide 16.2 mmol/L (21.6-31.8); Globulin 2.9 g/dL (1.6-3.3); Non-African American GFR(CKD) 107.8 (60.0-200.0); Potassium 3.9 mmol/L (3.5-5.5); Total Bilirubin 1.6 mg/dL (0.3-1.2); Total Protein 6.9 g/dL (6.2-8.2)
[2020-04-25] MEDS ORDERED: HYDROmorphone 0.5 MG/0.5 ML SYRINGE IM PRN (20:00)
[2020-04-25] MEDS: LORATADINE 10 MG TAB PO SCH (20:16)
[2020-04-26] MEDS: MEROPENEM 1 GM in SODIUM CHLORIDE 0.9% 100 ML IVPB SCH ×4 (00:38→23:25)
[2020-04-26] MEDS: HYDROmorphone 0.5 MG/0.5 ML SYRINGE IVP PRN ×4 (01:55→23:23)
[2020-04-26] MEDS ORDERED: NALOXONE 0.4 MG/ML 1 ML VIAL IV PRN (02:01)
[2020-04-26] MEDS ORDERED: ONDANSETRON 4 MG/2 ML VIAL IVP PRN (02:01)
[2020-04-26] MEDS: LEVOTHYROXINE 50 MCG TAB PO SCH (07:27)
[2020-04-26] MEDS: PANTOPRAZOLE 40 MG/10 ML VIAL IVP SCH ×2 (07:27→20:48)
[2020-04-26] MEDS: HEPARIN SODIUM,PORCINE 5,000 UNIT/ML 1 ML VIAL SQ SCH ×2 (07:27→20:47)
[2020-04-26] MEDS: SODIUM CHLORIDE 0.9% 1,000 ML IV SCH ×3 (07:33→17:05)
[2020-04-26 08:33] LABS: ALT 12 U/L (4-34); AST 26 U/L (14-36); African American GFR (CKD) >90 (>60 ml/min/1.73 sqM); Albumin 3.3 g/dL (3.5-5.0); Alkaline Phosphatase 102 U/L (38-126); Amylase 40 U/L (30-110); Anion Gap 8 mmol/L; Blood Urea Nitrogen 11 mg/dL (7-17); Calcium 8.3 mg/dL (8.4-10.2); Carbon Dioxide 26 mmol/L (22-30); Chloride 101 mmol/L (98-107); Globulin 3.3 g/dL; Glucose 105 mg/dL (74-99); Non-African American GFR(CKD) >90 (>60 ml/min/1.73 sqM); Potassium 3.7 mmol/L (3.5-5.1); Sodium 135 mmol/L (137-145); Total Protein 6.6 g/dL (6.3-8.2)
[2020-04-26 08:45] LABS: Basophils # (A) 0.1 k/uL (0-0.2); Basophils % (A) 0 %; Eosinophils # (A) 0.1 k/uL (0-0.7); Eosinophils % (A) 1 %; HCT 36.6 % (34.0-46.0); HGB 11.6 gm/dL (11.4-16.0); Lymphocytes % (A) 5 %; MCH 27.2 pg (25.0-35.0); MCHC 31.8 g/dL (31.0-37.0); MCV 85.6 fL (80.0-100.0); Mean Platelet Volume 9.2; Monocytes # (A) 1.1 k/uL (0-1.0); Monocytes % (A) 6 %; Neutrophils # (A) 15.4 k/uL (1.3-7.7); Neutrophils % (A) 86 %; Platelet Count 272 k/uL (150-450); RBC 4.28 m/uL (3.80-5.40); RDW 13.6 % (11.5-15.5); WBC 17.9 k/uL (3.8-10.6)
[2020-04-26] MEDS ORDERED: FUROSEMIDE 10 MG/ML 4 ML VIAL IV STA (11:07)
[2020-04-26] MEDS: CHOLECALCIFEROL 1,000 UNIT TAB PO SCH (11:19)
--- NOTE | 2020-04-26 11:32 | XR ---
EXAMINATION TYPE: XR chest 1V portable DATE OF EXAM: 04/26/2020 COMPARISON: 06/09/1960 HISTORY: Chest pain TECHNIQUE: Single frontal view of the chest is obtained. FINDINGS: There is basilar linear atelectasis or developing infiltrates. The degree of inspiration is limiting. The heart is not enlarged. The osseous structures are intact. IMPRESSION: 1. There is basilar linear atelectasis or developing infiltrates. The degree of inspiration is limit ing.
[2020-04-26] MEDS: ALBUTEROL NEBULIZED 2.5 MG/3 ML INHALATION SCH ×2 (12:08→19:59)
[2020-04-26] MEDS: HYDROcodone/APAP 5-325MG 1 EACH TAB PO PRN (12:38)
[2020-04-26] MEDS: NYSTATIN 100,000 UNIT/ML SUSP 500,000 UNIT/5 ML CUP PO SCH ×3 (13:27→20:55)
[2020-04-26 14:49] VITALS: BMI 47.5
--- NOTE | 2020-04-26 16:07 | P.PN ---
Subjective Progress Note Date: 04/26/20 Principal diagnosis: Acute pancreatitis The patient was seen and examined sitting up at the bedside sleeping however easily arousable. She states "tummy hurts." She has not had any further vomiting this hospitalization. She denies any nausea or diarrhea. Amylase and lipase are normal, SAM negative, triglycerides 110, IgG4 normal, WBC improving today 17.9. The patient has been afebrile. Objective - Vital Signs Vital signs: Vital Signs Temp 97.8 F 04/26/20 11:42 Pulse 96 04/26/20 12:24 Resp 17 04/26/20 11:42 BP 170/94 04/26/20 11:42 Pulse Ox 97 04/26/20 11:42 Intake & Output 04/25/20 04/26/20 04/26/20 18:59 06:59 18:59 Intake Total 100 1450 Balance 100 1450 Weight 117.934 kg Intake: Intake, IV Titration 100 450 Amount Meropenem 1 gm In Sodium 100 Chloride 0.9% 100 ml @ 33 .3 mls/hr IVPB Q8HR D[facility] Rx#:[id number] Sodium Chloride 0.9% 1, 450 000 ml @ 150 mls/hr IV . Q6H40M DARIN Rx#:[id number] Oral 1000 Other: Voiding Method Toilet Toilet # Voids 2 1 - Exam General appearance: The patient is alert, oriented, in no acute distress. O bese. HET: Head is normocephalic and atraumatic. Conjunctiva pink. Sclera anicteric. Neck: Supple without lymphadenopathy. Abdomen: Soft, nontender, nondistended with bowel sounds. No peritoneal signs. No palpable organomegaly or masses. Extremities: Normal skin color and turgor. No pedal edema. Neurological: Alert and oriented. Patient is mentally disabled. - Labs CBC & Chem 7: 04/26/20 07:13 04/26/20 07:13 Labs: Abnormal Lab Results - Last 24 Hours (Table) 04/25/20 04/26/20 04/26/20 Range/Units 05:32 07:13 07:13 WBC 17.9 H (3.8-10.6) k/uL Neutrophils # 15.4 H (1.3-7.7) k/uL Monocytes # 1.1 H (0-1.0) k/uL Sodium 135 L (137-145) mmol/L Carbon Dioxide 16.2 L (21.6-31.8) mmol/L Anion Gap 19.80 H (4.00-12.00) mmol/L Creatinine 0.46 L (0.52-1.04) mg/dL Glucose 119 H 105 H (70-110) mg/dL Calcium 8.4 L 8.3 L (8.7-10.3) mg/dL Total Bilirubin 1.6 H 2.0 H (0.3-1.2) mg/dL Albumin 3.3 L (3.5-5.0) g/dL Albumin/Globulin Ratio 1.38 L (1.60-3.17) g/dL Lipase 100 H (14-63) U/L Assessment and Plan Assessment: 1. Acute pancreatitis first episode. Patient presented with severe epigastric pain for the last 2 days duration noted to have elevated lipase consistent with acute pancreatitis. She does not have any history of alcohol use. Ultrasound did not show any evidence of gallstones and LFTs are within normal limits which makes it very unlikely we are dealing with biliary pancreatitis. At this time, etiology remains unclear. We will further investigate 2. Acute pancreatitis with leukocytosis likely related to acute pancreatitis. Patient started on antibiotics. 2. History of hypertension 3. History of hypothyroidism Plan: 1. Continue on clear liquid diet 2. Continue with aggressive IV hydration and pain control 3. Serum IgG4 level obtained to evaluate for autoimmune pancreatitis, normal result 4. Repeat labs in the morning 5. Repeat CBC with diff in morning 6. Continue antibiotics 7. There has been improvement in symptoms as well as leukocytosis, will hold off on repeat CT at this time 8. Judicial use of narcotics 9. We will follow with you closely 10. Patient to follow-up in office after discharge The impression and plan of care has been dictated as directed. Dr. Dwayne Dickens I performed a history and examination of this patient, discussed the same with the dictator. I agree with the dictator's note ,documented as a scribe. Any additional findings or plans will be noted.
--- NOTE | 2020-04-26 19:03 | PN ---
PROGRESS NOTE DATE OF SERVICE: 04/26/2020 This 49-year-old woman who was admitted with acute severe pancreatitis is still complaining of some abdominal pain. No chest pain. No palpitations. No fever. The most recent chest x-ray was done today. The patient is also complaining of some shortness of breath. The chest x-ray showed some blunting of the costophrenic angle. No chest pain. No palpitations. Past medical history reviewed. REVIEW OF SYSTEMS: CARDIOVASCULAR SYSTEM: No angina, palpitations. RESPIRATORY SYSTEM: As mentioned earlier. GI: As mentioned earlier. : No dysuria or retention. NERVOUS SYSTEM: No numbness, weakness. CURRENT MEDICATIONS: Reviewed. They include [place], Ventolin, Xanax, Bumex, vitamin D2, heparin, Dilaudid, Synthroid, Claritin, meropenem, Narcan, Zofran, Protonix, K-Dur. PHYSICAL EXAMINATION: Patient is alert, oriented x3. Pulse is 92, blood pressure 170/94, respiration 17, temperature 97.2, pulse ox 97% on room air. HEENT: Conjunctivae normal. NECK: No jugular venous distention. CARDIOVASCULAR SYSTEM: S1, S2 muffled. RESPIRATORY SYSTEM: Breath sounds diminished at the bases. A few scattered rhonchi and crackles. ABDOMEN: Soft, obese, non-tender. LEGS: No edema. No swelling. NERVOUS SYSTEM: No focal deficit. LABS: WBC 11.6. Amylase and lipase are 40 and 213. ASSESSMENT: 1. Acute severe pancreatitis with severe abdominal pain. 2. Increased white count. 3. History of coronary artery disease. 4. Hypertension. 5. Fluid overload. 6. Hypothyroidism. 7. Mentally challenged. 8. History of degenerative joint disease. 9. Obesity with body mass index 47.6. 10.FULL CODE. RECOMMENDATIONS AND DISCUSSION: In this 49-year-old woman who presented with multiple complex medical issues, we will monitor the patient closely, continue the current medications, continue symptomatic treatment. Otherwise at this time I would recommend Lasix and I would also recommend holding the IV fluids. BNP and a set of troponins. Otherwise, prognosis guarded because of multiple complex medical issues. Further recommendations to follow. See orders for further details. MMODL / IJN: [id number] /
[2020-04-26] MEDS: FUROSEMIDE 10 MG/ML 4 ML VIAL IV SCH (20:47)
[2020-04-26] MEDS: LORATADINE 10 MG TAB PO SCH (20:48)
[2020-04-27] MEDS: LEVOTHYROXINE 50 MCG TAB PO SCH (05:35)
[2020-04-27] MEDS: HYDROcodone/APAP 5-325MG 1 EACH TAB PO PRN ×2 (05:35→12:02)
[2020-04-27] MEDS: ALBUTEROL NEBULIZED 2.5 MG/3 ML INHALATION SCH ×3 (07:25→19:13)
[2020-04-27] MEDS: FUROSEMIDE 10 MG/ML 4 ML VIAL IV SCH ×2 (08:29→21:11)
[2020-04-27] MEDS: PANTOPRAZOLE 40 MG/10 ML VIAL IVP SCH ×2 (08:29→21:11)
[2020-04-27] MEDS: MULTIVITAMINS, THERA 1 EACH TAB PO SCH (08:29)
[2020-04-27] MEDS: HEPARIN SODIUM,PORCINE 5,000 UNIT/ML 1 ML VIAL SQ SCH ×2 (08:29→21:11)
[2020-04-27] MEDS: MEROPENEM 1 GM in SODIUM CHLORIDE 0.9% 100 ML IVPB SCH ×2 (08:31→16:58)
[2020-04-27] MEDS: NYSTATIN 100,000 UNIT/ML SUSP 500,000 UNIT/5 ML CUP PO SCH ×5 (08:34→23:17)
[2020-04-27 09:42] LABS: Basophils # (A) 0.1 k/uL (0-0.2); Basophils % (A) 0 %; Eosinophils # (A) 0.5 k/uL (0-0.7); Eosinophils % (A) 2 %; HCT 38.6 % (34.0-46.0); HGB 12.2 gm/dL (11.4-16.0); Lymphocytes # (A) 1.9 k/uL (1.0-4.8); Lymphocytes % (A) 9 %; MCH 27.4 pg (25.0-35.0); MCHC 31.7 g/dL (31.0-37.0); MCV 86.4 fL (80.0-100.0); Mean Platelet Volume 7.4; Monocytes # (A) 0.9 k/uL (0-1.0); Monocytes % (A) 4 %; Neutrophils # (A) 17.9 k/uL (1.3-7.7); Neutrophils % (A) 83 %; Platelet Count 338 k/uL (150-450); RBC 4.47 m/uL (3.80-5.40); RDW 13.6 % (11.5-15.5); WBC 21.5 k/uL (3.8-10.6)
[2020-04-27] MEDS: CHOLECALCIFEROL 1,000 UNIT TAB PO SCH (12:02)
--- NOTE | 2020-04-27 13:24 | CT ---
EXAMINATION TYPE: CT ChestAbdPelvis wo con DATE OF EXAM: 04/27/2020 COMPARISON: CT abdomen and pelvis April 22, 2020. Chest x-ray from yesterday. HISTORY: Pancreatitis, UTI, chest and abdominal pain CT DLP: 2772.9 mGycm. Automated Exposure Control for Dose Reduction was Utilized. TECHNIQUE: CT scan of the thorax, abdomen and pelvis is performed without oral or IV contrast. FINDINGS: LUNGS: Evaluation degraded by patient's inability to breath-hold especially mid to lower lungs. There is low lung volumes with poor inspiration and bibasilar atelectasis and/or limited consolidation. Tr derick left pleural effusion noted. No pneumothorax bilaterally. MEDIASTINUM: There are no greater than 1 cm hilar or mediastinal lymph nodes. No pericardial effusi on is seen. Heart size upper limits of normal. Coronary calcification is present which is noted terra er for underlying coronary artery disease. LIVER/GB: Dependent density in gallbladder likely reflects vicarious excretion of contrast. Liver remains diffusely low dense consistent with fatty infiltration. PANCREAS: Now moderate to severe ill-defined fluid and fat stranding surrounding pancreas extending i nferiorly more prominent from prior study. No well-formed fluid collection clearly seen. Scattered pr ominent but subcentimeter peripancreatic lymph nodes on current study prepped slightly more prominent from prior. SPLEEN: No significant abnormality is seen. ADRENALS: No significant abnormality is seen. KIDNEYS: No significant abnormality is seen. BOWEL: No significant abnormality is seen. GENITAL ORGANS: No gross abnormality seen. LYMPH NODES: No greater than 1cm abdominal or pelvic lymph nodes are appreciated. OSSEOUS STRUCTURES: Facet arthropathy lower lumbar levels OTHER: New mild lateral soft tissues anasarca of the lower abdomen and pelvis IMPRESSION: 1. Worsening inflammatory changes related to acute pancreatitis identified at level of pancreas exten ding inferiorly throughout majority of the abdomen. No well-formed fluid collection noted. 2. Poor inspiration. Overall low lung volumes. Bibasilar atelectasis and/or less likely acute infiltr ate noted. Trace left pleural effusion.
--- NOTE | 2020-04-27 16:35 | XR ---
EXAMINATION TYPE: XR chest 1V portable DATE OF EXAM: 04/27/2020 COMPARISON: Prior chest 04/26/2020 HISTORY: Congestive heart failure, cough and difficulty breathing TECHNIQUE: Single frontal view of the chest is obtained. FINDINGS: Exam is rotated, technique is expiratory. No evident pneumothorax or pleural effusion. Min imal patchy basilar density persists. Heart size is stable. IMPRESSION: Probable subsegmental basilar atelectatic changes, correlate to exclude pneumonia.
--- NOTE | 2020-04-27 16:36 | P.PN ---
Subjective Progress Note Date: 04/27/20 Principal diagnosis: Acute pancreatitis The patient was seen and examined sitting up at the bedside sleeping however easily arousable. She states "tummy hurts." She has not had any further vomiting this hospitalization. She denies any nausea or diarrhea. Amylase and lipase are normal, SAM negative, triglycerides 110, IgG4 normal, WBC 21.5. The patient has been afebrile. She has remained on a clear liquid diet. Objective - Vital Signs Vital signs: Vital Signs Temp 97.4 F L 04/27/20 11:30 Pulse 100 04/27/20 11:30 Resp 20 04/27/20 11:30 BP 126/84 04/27/20 11:30 Pulse Ox 95 04/27/20 11:30 Intake & Output 04/26/20 04/27/20 04/27/20 18:59 06:59 18:59 Intake Total 990 Balance 990 Weight 117.934 kg Intake: Intake, IV Titration 100 Amount Meropenem 1 gm In Sodium 100 Chloride 0.9% 100 ml @ 33 .3 mls/hr IVPB Q8HR [facility], [facility] Rx#:[id number] Oral 890 Other: Voiding Method Toilet Toilet # Voids 6 4 - Exam General appearance: The patient is alert, oriented, in no acute distress. Obese. HET: Head is normocephalic and atraumatic. Conjunctiva pink. Sclera anicteric. Neck: Supple without lymphadenopathy. Abdomen: Soft,diffuse tenderness to palpation, abdomen firm with bowel sounds. No guarding or rigidity. Extremities: Normal skin color and turgor. No pedal edema. Neurological: Alert and oriented. Patient is mentally disabled. - Labs CBC & Chem 7: 04/27/20 09:18 04/26/20 07:13 Labs: Abnormal Lab Results - Last 24 Hours (Table) 04/27/20 Range/Units 09:18 WBC 21.5 H (3.8-10.6) k/uL Neutrophils # 17.9 H (1.3-7.7) k/uL Assessment and Plan Assessment: 1. Acute pancreatitis first episode. Patient presented with severe epigastric pain for the last 2 days duration noted to have elevated lipase consistent with acute pancreatitis. She does not have any history of alcohol use. Ultrasound did not show any evidence of gallstones and LFTs are within normal limits which makes it very unlikely we are dealing with biliary pancreatitis. At this time, etiology remains unclear. Today's repeat CT abdomen and pelvis shows worsening inflammatory changes related to acute pancreatitis identified at level pancreas extending inferiorly throughout majority of the abdomen. No well-formed fluid collection noted. 2. Acute pancreatitis with leukocytosis likely related to acute pancreatitis. Patient started on antibiotics. 2. History of hypertension 3. History of hypothyroidism Plan: 1. Advance to full liquid diet 2. Continue with aggressive IV hydration and pain control 3. Serum IgG4 level obtained to evaluate for autoimmune pancreatitis, normal result 4. Repeat labs in the morning 5. Repeat CBC with diff in morning 6. Continue antibiotics 7. Repeat CT abdomen and pelvis 8. Judicial use of narcotics 9. We will follow with you closely 10. Patient to follow-up in office after discharge The impression and plan of care has been dictated as directed. Dr. Dwayne Dickens I performed a history and examination of this patient, discussed the same with the dictator. I agree with the dictator's note ,documented as a scribe. Any additional findings or plans will be noted.
[2020-04-27 16:57] LABS: African American GFR (CKD) 124.9 (60.0-200.0); Albumin 3.8 g/dL (3.80-4.90); Albumin/Globulin Ratio 1.36 (1.60-3.17); Anion Gap 14.2 mmol/L (4.00-12.00); BUN/Creat Ratio 16.67 Ratio (12.00-20.00); Calcium 8.5 mg/dL (8.7-10.3); Carbon Dioxide 29.8 mmol/L (21.6-31.8); Globulin 2.8 g/dL (1.6-3.3); Non-African American GFR(CKD) 107.8 (60.0-200.0); Total Protein 6.6 g/dL (6.2-8.2)
--- NOTE | 2020-04-27 18:02 | PN ---
PROGRESS NOTE DATE OF SERVICE: 04/27/2020 This 49-year-old woman who was admitted with acute severe pancreatitis and severe abdominal pain is being closely monitored at this time. The patient also had a CT scan of the chest, abdomen and pelvis today which showed worsening inflammatory changes related to acute pancreatitis at the level of the pancreas extending inferiorly throughout the majority of the abdomen. Poor inspiration was also noted. Bibasilar atelectasis was also noted. Past medical history reviewed. REVIEW OF SYSTEMS: CARDIOVASCULAR SYSTEM: No angina, palpitations. RESPIRATORY SYSTEM: As mentioned earlier. GI: As mentioned earlier. : No dysuria or retention. NERVOUS SYSTEM: No numbness, weakness. CURRENT MEDICATIONS: Reviewed. They include [place], Ventolin, Xanax, Bumex, Lasix, heparin, Dilaudid, meropenem, Narcan, Mycostatin, Zofran, Protonix. PHYSICAL EXAMINATION: Patient is alert and oriented x3. Pulse 100, blood pressure 126/84, respiration 20, temperature 97.4, pulse ox 94% on 2 L. HEENT: Conjunctivae normal. NECK: No jugular venous distention. CARDIOVASCULAR SYSTEM: S1, S2 muffled. RESPIRATORY SYSTEM: Breath sounds diminished at the bases. Bilateral scattered rhonchi and crackles. ABDOMEN: Soft, non-tender. Obese. Diffuse distention. LEGS: No edema. No swelling. NERVOUS SYSTEM: No focal deficit. LABS: WBC 21.5. Otherwise, troponin less than 0.012. ASSESSMENT: 1. Acute severe pancreatitis and severe abdominal pain with worsening inflammatory changes related to acute pancreatitis. 2. Increased white count. 3. Possible atelectasis. 4. History of coronary artery disease. 5. Hypertension. 6. History of fluid overload. 7. Hypothyroidism. 8. Mentally challenged. 9. History of degenerative joint disease. 10.Obesity with body mass index 47.6. 11.FULL CODE. RECOMMENDATIONS AND DISCUSSION: I recommend to continue current medications, continue with the monitoring, symptomatic treatment. Continue with the empiric antibiotics. Follow the cultures. I would also recommend a CT scan, as mentioned earlier, results of which are reviewed. I would also recommend a surgical evaluation as well as infectious disease evaluation by Dr. Molina. I would also recommend a repeat chest x-ray to evaluate for any fluid overload. Prognosis guarded. Further recommendations to follow. MMODL / IJN: [id number] /
[2020-04-27] MEDS: LORATADINE 10 MG TAB PO SCH (21:11)
[2020-04-28] MEDS: MEROPENEM 1 GM in SODIUM CHLORIDE 0.9% 100 ML IVPB SCH ×4 (00:56→23:50)
[2020-04-28] MEDS: HYDROcodone/APAP 5-325MG 1 EACH TAB PO PRN ×3 (03:24→21:04)
[2020-04-28 06:09] LABS: Basophils % (A) 0 %; Eosinophils # (A) 0.4 k/uL (0-0.7); Eosinophils % (A) 3 %; HCT 35.6 % (34.0-46.0); HGB 11.2 gm/dL (11.4-16.0); Lymphocytes # (A) 1.2 k/uL (1.0-4.8); Lymphocytes % (A) 7 %; MCH 26.9 pg (25.0-35.0); MCHC 31.6 g/dL (31.0-37.0); MCV 85.3 fL (80.0-100.0); Mean Platelet Volume 7.3; Monocytes % (A) 6 %; Neutrophils # (A) 14.1 k/uL (1.3-7.7); Neutrophils % (A) 83 %; Platelet Count 346 k/uL (150-450); RBC 4.17 m/uL (3.80-5.40); RDW 13.7 % (11.5-15.5); WBC 16.9 k/uL (3.8-10.6)
[2020-04-28] MEDS: LEVOTHYROXINE 50 MCG TAB PO SCH (06:15)
[2020-04-28] MEDS: ALBUTEROL NEBULIZED 2.5 MG/3 ML INHALATION SCH ×3 (07:15→19:40)
[2020-04-28] MEDS: PANTOPRAZOLE 40 MG/10 ML VIAL IVP SCH ×2 (07:42→21:04)
[2020-04-28] MEDS: HEPARIN SODIUM,PORCINE 5,000 UNIT/ML 1 ML VIAL SQ SCH ×2 (07:42→21:04)
[2020-04-28] MEDS: FUROSEMIDE 10 MG/ML 4 ML VIAL IV SCH ×2 (07:42→21:04)
[2020-04-28] MEDS: MULTIVITAMINS, THERA 1 EACH TAB PO SCH (07:42)
[2020-04-28] MEDS: NYSTATIN 100,000 UNIT/ML SUSP 500,000 UNIT/5 ML CUP PO SCH ×4 (07:46→22:38)
[2020-04-28 09:06] LABS: African American GFR (CKD) 132.6 (60.0-200.0); Albumin 3.3 g/dL (3.80-4.90); Albumin/Globulin Ratio 1.27 (1.60-3.17); Anion Gap 11.7 mmol/L (4.00-12.00); Calcium 8.3 mg/dL (8.7-10.3); Carbon Dioxide 34.3 mmol/L (21.6-31.8); Globulin 2.6 g/dL (1.6-3.3); Non-African American GFR(CKD) 114.4 (60.0-200.0); Total Bilirubin 1.7 mg/dL (0.2-1.2); Total Protein 5.9 g/dL (6.2-8.2)
--- NOTE | 2020-04-28 09:40 | P.GSCN ---
History of Present Illness Consult date: 04/28/20 Reason for Consult: Pancreatitis History of present illness: Is a 41-year-old female who was admitted to the hospital complaints of abdominal pain. Patient's workup found evidence of pancreatitis. Her ultrasound gallbladder shows no evidence of gallstones. Patient denies drinking. Past Medical History Past Medical History: Coronary Artery Disease (CAD), Hypertension, Thyroid Disorder Additional Past Medical History / Comment(s): mentally impared History of Any Multi-Drug Resistant Organisms: None Reported Past Surgical History: Orthopedic Surgery Additional Past Surgical History / Comment(s): Fx Lt ankle-sx, skin lesions removed back and slin lesion removed from rt. butler Past Anesthesia/Blood Transfusion Reactions: No Reported Reaction Past Psychological History: No Psychological Hx Reported Smoking Status: Never smoker Past Alcohol Use History: None Reported Past Drug Use History: None Reported - Past Family History Father Family Medical History: Cancer, Hyperlipidemia, Hypertension, Myocardial Infarction (NH) Additional Family Medical History / Comment(s): skin CA nose Mother Family Medical History: Hyperlipidemia, Hypertension Medications and Allergies Home Medications Medication Instructions Recorded Confirmed Type Levothyroxine Sodium [Synthroid] 50 mcg PO DAILY 03/03/16 04/22/20 History Cetirizine HCl [Zyrtec] 10 mg PO HS 02/13/17 04/22/20 History Cholecalciferol [Vitamin D3 (25 2,000 unit PO MOTUWETHFR 04/22/20 04/22/20 History Mcg = 1000 Iu)] Medroxyprogesterone Acetate 150 mg IM Q90D 04/22/20 04/22/20 History [Depo-Provera] Potassium Chloride ER [K-Dur 10] 10 meq PO DAILY PRN 04/22/20 04/22/20 History Bumetanide [Bumex] 1 mg PO DAILY PRN 04/23/20 04/23/20 History Allergies Allergy/AdvReac Type Severity Reaction Status Date / Time bacitracin Allergy Rash/Hives Verified 04/22/20 21:29 [From Neosporin ([id number])] bacitracin zinc Allergy Rash/Hives Verified 04/22/20 21:29 [From Neosporin ([id number])] levofloxacin [From Levaquin] Allergy Rash/Hives Verified 04/22/20 21:29 neomycin sulfate Allergy Rash/Hives Verified 04/22/20 21:29 [From Neosporin ([id number])] polymyxin B Allergy Rash/Hives Verified 04/22/20 21:29 [From Neosporin ([id number])] Surgical - Exam Vital Signs Temp Pulse Resp BP Pulse Ox 97.5 F L 103 H 19 150/83 98 04/22/20 17:30 04/22/20 17:30 04/22/20 17:30 04/22/20 17:30 04/22/20 17:30 - General well developed, well nourished, no distress - Eyes PERRL - ENT normal pinna - Neck no masses - Respiratory normal expansion - Cardiovascular Rhythm: regular - Abdomen Mild epigastric tenderness Abdomen: soft Results - Labs 04/28/20 05:56 04/28/20 05:56 Abnormal Lab Results - Last 24 Hours (Table) 04/27/20 04/27/20 04/28/20 Range/Units 09:18 09:18 05:56 WBC 21.5 H (3.8-10.6) k/uL Hgb (11.4-16.0) gm/dL Neutrophils # 17.9 H (1.3-7.7) k/uL Potassium 3.0 L 3.0 L (3.5-5.5) mmol/L Chloride 93 L 92 L (96-109) mmol/L Carbon Dioxide 34.3 H (21.6-31.8) mmol/L Anion Gap 14.20 H (4.00-12.00) mmol/L Creatinine 0.5 L (0.6-1.5) mg/dL BUN/Creatinine Ratio 24.00 H (12.00-20.00) Ratio Glucose 113 H 116 H (70-110) mg/dL Calcium 8.5 L 8.3 L (8.7-10.3) mg/dL Total Bilirubin 2.0 H 1.7 H (0.3-1.2) mg/dL Total Protein 5.9 L (6.2-8.2) g/dL Albumin 3.30 L (3.80-4.90) g/dL Albumin/Globulin Ratio 1.36 L 1.27 L (1.60-3.17) g/dL 04/28/20 Range/Units 05:56 WBC 16.9 H (3.8-10.6) k/uL Hgb 11.2 L (11.4-16.0) gm/dL Neutrophils # 14.1 H (1.3-7.7) k/uL Potassium (3.5-5.5) mmol/L Chloride (96-109) mmol/L Carbon Dioxide (21.6-31.8) mmol/L Anion Gap (4.00-12.00) mmol/L Creatinine (0.6-1.5) mg/dL BUN/Creatinine Ratio (12.00-20.00) Ratio Glucose (70-110) mg/dL Calcium (8.7-10.3) mg/dL Total Bilirubin (0.3-1.2) mg/dL Total Protein (6.2-8.2) g/dL Albumin (3.80-4.90) g/dL Albumin/Globulin Ratio (1.60-3.17) g/dL Diabetes panel 04/27/20 04/28/20 Range/Units 09:18 05:56 Sodium 137 138 (135-145) mmol/L Potassium 3.0 L 3.0 L (3.5-5.5) mmol/L Chloride 93 L 92 L (96-109) mmol/L Carbon Dioxide 29.8 34.3 H (21.6-31.8) mmol/L BUN 10.0 12.0 (9.0-27.0) mg/dL Creatinine 0.6 0.5 L (0.6-1.5) mg/dL Glucose 113 H 116 H (70-110) mg/dL Calcium 8.5 L 8.3 L (8.7-10.3) mg/dL AST 26 25 (13-35) U/L ALT 17 17 (8-44) U/L Alkaline Phosphatase 113 101 (41-126) U/L Total Protein 6.6 5.9 L (6.2-8.2) g/dL Albumin 3.80 3.30 L (3.80-4.90) g/dL Calcium panel 04/27/20 04/28/20 Range/Units 09:18 05:56 Calcium 8.5 L 8.3 L (8.7-10.3) mg/dL Albumin 3.80 3.30 L (3.80-4.90) g/dL Pituitary panel 04/27/20 04/28/20 Range/Units 09:18 05:56 Sodium 137 138 (135-145) mmol/L Potassium 3.0 L 3.0 L (3.5-5.5) mmol/L Chloride 93 L 92 L (96-109) mmol/L Carbon Dioxide 29.8 34.3 H (21.6-31.8) mmol/L BUN 10.0 12.0 (9.0-27.0) mg/dL Creatinine 0.6 0.5 L (0.6-1.5) mg/dL Glucose 113 H 116 H (70-110) mg/dL Calcium 8.5 L 8.3 L (8.7-10.3) mg/dL Adrenal panel 04/27/20 04/28/20 Range/Units 09:18 05:56 Sodium 137 138 (135-145) mmol/L Potassium 3.0 L 3.0 L (3.5-5.5) mmol/L Chloride 93 L 92 L (96-109) mmol/L Carbon Dioxide 29.8 34.3 H (21.6-31.8) mmol/L BUN 10.0 12.0 (9.0-27.0) mg/dL Creatinine 0.6 0.5 L (0.6-1.5) mg/dL Glucose 113 H 116 H (70-110) mg/dL Calcium 8.5 L 8.3 L (8.7-10.3) mg/dL Total Bilirubin 2.0 H 1.7 H (0.3-1.2) mg/dL AST 26 25 (13-35) U/L ALT 17 17 (8-44) U/L Alkaline Phosphatase 113 101 (41-126) U/L Total Protein 6.6 5.9 L (6.2-8.2) g/dL Albumin 3.80 3.30 L (3.80-4.90) g/dL - Imaging CT scan - abdomen: report reviewed (Evidence of pancreatic Alejandro) Assessment and Plan Assessment: Bertha Alejandro. Unsure of etiology this point. Patient will remain in the hospital receive supportive care with IV fluids
[2020-04-28] MEDS ORDERED: Magnesium Replacement Protocol 1 EACH MISC MISCELLANE PRN (10:02)
[2020-04-28] MEDS ORDERED: Potassium Replacement Protocol 1 EACH MISC MISCELLANE PRN (10:02)
--- NOTE | 2020-04-28 11:19 | PN ---
PROGRESS NOTE DATE OF DICTATION: April 28, 2020 Patient is a 49-year-old pleasant white female admitted to the hospital with severe acute pancreatitis. Continues to have persistent abdominal pain and abdominal distention. She had a repeat CT scan of the abdomen and pelvis done yesterday that showed worsening inflammatory changes related to acute pancreatitis with some fluid collection throughout the abdomen. The patient continues to complain of abdominal discomfort. She is presently on broad-spectrum antibiotics. She denies any fever, chills, or night sweats. She reports no nausea, vomiting. On a full liquid diet with decreased appetite. PHYSICAL EXAMINATION: She appears comfortable. VITAL SIGNS: Stable. Blood pressure is 133/86, pulse rate 94, temperature 97.5. HEENT examination unremarkable. Conjunctivae pink. Sclerae anicteric. Oral cavity no lesions. Neck no JVD or lymph node enlargement. Chest was clear auscultation. HEART: Regular rate and rhythm. ABDOMEN is distended. Stool formed in consistency. Mild diffuse tenderness throughout the Abdomen. No rebound or rigidity. EXTREMITIES: No pedal edema. NEURO: She is alert and oriented x3. No focal deficits. LABS: From today WBC 16.9, hemoglobin 11.2, platelets normal. Basic metabolic panel showed a BUN of 12, creatinine 0.57. Bilirubin is 1.7. AST and ALT are normal. Amylase and lipase have normalized. IMPRESSION: 1. Acute severe pancreatitis with severe inflammatory changes around the pancreas with mild fluid the diffusely all over the abdomen consistent with acute severe pancreatitis. Amylase and lipase have normalized. Continues to have persistent abdominal pain. Remains on broad-spectrum antibiotics. 2. Leukocytosis related to acute severe pancreatitis. 3. Morbid obesity. RECOMMENDATIONS: 1. Continue with broad-spectrum antibiotics. The patient has been on meropenem for the last 3 days. 2. Monitor labs closely. 3. We will advance to full liquid diet. 4. Continue IV hydration. 5. We will follow with you closely. Thank you for this consultation. MMODL / IJN: [id number] /
[2020-04-28] MEDS: POTASSIUM CHLORIDE ER 20 MEQ TAB.ER PO SCH ×2 (11:45→12:53)
--- NOTE | 2020-04-28 17:22 | PN ---
PROGRESS NOTE DATE OF SERVICE: 04/28/2020 This 49-year-old woman who was admitted with significant pancreatitis also complaining of abdominal pain and distention. Repeat CAT scan was done and surgery and as well as Gastroenterology following the patient closely. Ultrasound of the gallbladder showed no evidence of any gallstones. No chest pain. No palpitations. No fever. The white count is still elevated. REVIEW OF SYSTEMS: CARDIOVASCULAR SYSTEM: No angina or palpitations. RESPIRATIONS as mentioned earlier. GI: As mentioned earlier. no dysuria or retention. NERVOUS SYSTEMS: No numbness or weakness. CURRENT MEDICATIONS: Reviewed and include: 1. [place]. 2. Ventolin. 3. Xanax. 4. Bumex. 5. Lasix. 6. Synthroid. 7. Claritin. 8. Meropenem. 9. Narcan. 10.Zofran. 11.Protonix. 12.K-Dur. PHYSICAL EXAMINATION: Alert and oriented x3. The pulse is 103. Blood pressure 120/70, respirations 18, temperature 97.2, pulse ox 97% on room air. HEENT: Conjunctivae normal. NECK: No JVD. CARDIOVASCULAR: S1, S2. RESPIRATORY: As mentioned earlier. ABDOMEN: Soft, obese. Mild diffuse tenderness. LEGS are no edema. No swelling. NERVOUS SYSTEM: No focal deficits. LABS: WBC 16.9. Potassium is 3. Other labs are noted. ASSESSMENT: 1. Acute severe pancreatitis with severe abdominal pain and worsening inflammatory changes related acute pancreatitis. 2. Increased WBC. 3. Possible atelectasis. 4. Hypokalemia. 5. History of coronary artery disease. 6. Hypertension. 7. History of fluid overload. 8. Hypothyroidism. 9. Mentally challenged. 10.History of degenerative joint disease. 11.Obesity with body mass index of 47.6. 12.FULL CODE. RECOMMENDATIONS AND DISCUSSION: Recommend to continue current medications, continue to monitor. Symptomatic treatment. Otherwise at this time, also recommended Infectious Disease evaluation. Otherwise, broad-spectrum IV antibiotics. Cultures are negative so far. We will repeat culture. Supplement potassium treatment. Diet per gastroenterology and surgery. Guarded prognosis. Further recommendations to follow. MMODL / IJN: [id number] /
[2020-04-28] MEDS: LORATADINE 10 MG TAB PO SCH (21:04)
--- NOTE | 2020-04-28 23:37 | PN ---
PROGRESS NOTE DATE OF SERVICE: 04/28/2020. REASON FOR FOLLOWUP: Leukocytosis likely gallstone pancreatitis. INTERVAL HISTORY: Patient is currently afebrile. No further vomiting has been reported. Overall pain is currently controlled. She is sleepy and lethargic and unable to provide any history. However, no diarrhea reported. PHYSICAL EXAMINATION: Blood pressure 120/75 with a pulse of 96, temperature 98. She is 95% on 2 L nasal cannula. She is 95% on room air. General description: The patient is a middle-aged female lying in bed in no distress. Respiratory system: Unlabored breathing, clear to auscultation anteriorly. Heart S1, S2. Regular rate and rhythm. Abdomen soft, no tenderness. LABORATORY DATA: Hemoglobin 11.1, white count 16.9, BUN of 12 and creatinine 0.5. DIAGNOSTIC IMPRESSION AND PLAN: Patient with leukocytosis, most likely pancreatitis, possible gallstone related. The patient is currently covered with meropenem. White count showing a downward trend, to continue. at the bedside. [facility]. MMODL / IJN: [id number] /
--- NOTE | 2020-04-29 00:07 | P.CONS ---
History of Present Illness - Reason for Consult Consult date: 04/27/20 Leukocytosis Requesting physician: Radha Betancourt - Chief Complaint Abdominal pain and vomiting x few days - History of Present Illness Patient is a 49-year-old female who was put into the ER at [facility] on 04/22/2020 for evaluation of abdominal pain and vomiting that started the day of presentation to the hospital pain has been mostly in the upper abdominal area with an episode or 2 of vomiting but no diarrhea no fever patient did have a developmental delay so most information has been obtained from the mother present at the bedside, on arrival to the ER the patient has been afebrile and no fever has been recorded throughout her hospital stay, the patient did have white count of 16.3 on admission that is up to 21.5 today that has prompted this infection disease consultation workup so far included CT of abdominal pelvis on admission with tissue some fluid and fat stranding in the retroperitoneum around the pancreas could related to pancreatitis subsequently the patient did have a ultrasound of the abdomen, but it was postponed CBD upper limits, patient also have CT of abdominal chest and pelvis completed today we did shows worsening ischemic changes due to acute pancreatitis no well-formed fluid collection seen and some atelectasis at the lung bases no better did show some dependent density, patient did have normal triglycerides and no history of alcoholism Review of Systems Positive points has been mentioned in HPI complete review could not be obtained because of his underlying mental status Past Medical History Past Medical History: Coronary Artery Disease (CAD), Hypertension, Thyroid Disorder Additional Past Medical History / Comment(s): mentally impared History of Any Multi-Drug Resistant Organisms: None Reported Past Surgical History: Orthopedic Surgery Additional Past Surgical History / Comment(s): Fx Lt ankle-sx, skin lesions removed back and slin lesion removed from rt. butler Past Anesthesia/Blood Transfusion Reactions: No Reported Reaction Past Psychological History: No Psychological Hx Reported Smoking Status: Never smoker Past Alcohol Use History: None Reported Past Drug Use History: None Reported - Past Family History Father Family Medical History: Cancer, Hyperlipidemia, Hypertension, Myocardial Infarction ([place]) Additional Family Medical History / Comment(s): skin CA nose Mother Family Medical History: Hyperlipidemia, Hypertension Medications and Allergies Home Medications Medication Instructions Recorded Confirmed Type Levothyroxine Sodium [Synthroid] 50 mcg PO DAILY 03/03/16 04/22/20 History Cetirizine HCl [Zyrtec] 10 mg PO HS 02/13/17 04/22/20 History Cholecalciferol [Vitamin D3 (25 2,000 unit PO MOTUWETHFR 04/22/20 04/22/20 History Mcg = 1000 Iu)] Medroxyprogesterone Acetate 150 mg IM Q90D 04/22/20 04/22/20 History [Depo-Provera] Potassium Chloride ER [K-Dur 10] 10 meq PO DAILY PRN 04/22/20 04/22/20 History Bumetanide [Bumex] 1 mg PO DAILY PRN 04/23/20 04/23/20 History Allergies Allergy/AdvReac Type Severity Reaction Status Date / Time bacitracin Allergy Rash/Hives Verified 04/22/20 21:29 [From Neosporin ([id number])] bacitracin zinc Allergy Rash/Hives Verified 04/22/20 21:29 [From Neosporin ([id number])] levofloxacin [From Levaquin] Allergy Rash/Hives Verified 04/22/20 21:29 neomycin sulfate Allergy Rash/Hives Verified 04/22/20 21:29 [From Neosporin ([id number])] polymyxin B Allergy Rash/Hives Verified 04/22/20 21:29 [From Neosporin ([id number])] Physical Exam Vitals: Vital Signs Temp Pulse Pulse Resp BP Pulse Ox 04/27/20 20:23 98.3 F 96 19 130/76 97 04/27/20 19:24 96 04/27/20 19:14 97 99 04/27/20 11:30 97.4 F L 100 20 126/84 95 04/27/20 08:00 20 04/27/20 07:35 74 04/27/20 07:25 72 04/27/20 05:00 97.9 F 99 20 151/98 99 Intake and Output 04/27/20 04/27/20 04/27/20 06:59 14:59 22:59 Intake Total 690 Balance 690 Intake: Intake, IV Titration 100 Amount Meropenem 1 gm In Sodium 100 Chloride 0.9% 100 ml @ 33 .3 mls/hr IVPB Q8HR [facility] Rx#:[id number] Oral 590 Other: Voiding Method Toilet Toilet Toilet # Voids 4 1 Weight 117.934 kg GENERAL DESCRIPTION: Middle-aged female lying in bed, no distress. No tachypnea or accessory muscle of respiration use. HEENT: Shows Pallor , no scleral icterus. Oral mucous membrane is dry. No pharyngeal erythema or thrush NECK: Trachea central, no thyromegaly. LUNGS: Unlabored breathing. Clear to auscultation anteriorly. No wheeze or crackle. HEART: S1, S2, regular rate and rhythm. No loud murmur ABDOMEN: Soft, upper quadrant tenderness , guarding or rigidity, no organomegaly EXTREMITIES: No edema of feet. SKIN: No rash, no masses palpable. NEUROLOGICAL: The patient is awake, however orientation could not be determined Results CBC & Chem 7: 04/28/20 05:56 04/28/20 05:56 Labs: Abnormal Lab Results - Last 24 Hours (Table) 04/27/20 04/27/20 Range/Units 09:18 09:18 WBC 21.5 H (3.8-10.6) k/uL Neutrophils # 17.9 H (1.3-7.7) k/uL Potassium 3.0 L (3.5-5.5) mmol/L Chloride 93 L (96-109) mmol/L Anion Gap 14.20 H (4.00-12.00) mmol/L Glucose 113 H (70-110) mg/dL Calcium 8.5 L (8.7-10.3) mg/dL Total Bilirubin 2.0 H (0.3-1.2) mg/dL Albumin/Globulin Ratio 1.36 L (1.60-3.17) g/dL Assessment and Plan Assessment: 1- patient with elevated white count in this patient presented to the hospital with abdominal pain and vomiting source is likely acute pancreatitis with some densities seen in the gallbladder with a question of possible related to passage of a gallstone in this patient currently with a normal triglyceride and no h istory of alcoholism and no other obvious focus of infection with evidence of any pneumonia or UTI 2- Patient with multiple antibiotic ALLERGIES that would limit the number of antibiotic safe to use (1) Leukocytosis Current Visit: Yes Status: Acute Code(s): D72.829 - ELEVATED WHITE BLOOD CELL COUNT, UNSPECIFIED SNOMED Code(s): 893229220 (2) Pancreatitis Current Visit: Yes Status: Acute Code(s): K85.90 - ACUTE PANCREATITIS WITHOUT NECROSIS OR INFECTION, UNSP SNOMED Code(s): 19896026 Plan: 1- blood cultures will be repeated 2-patient antibiotic has been adjusted to meropenem 1 g every 8 by admitting team to continue 3- bowel rest and IV fluid We will follow on clinical condition and cultures to further adjust medication if needed Thank you for this consultation will follow this patient with you Time with Patient: Greater than 30
[2020-04-29] MEDS: HYDROcodone/APAP 5-325MG 1 EACH TAB PO PRN ×2 (03:58→15:06)
[2020-04-29] MEDS: LEVOTHYROXINE 50 MCG TAB PO SCH (05:50)
[2020-04-29] MEDS: ALBUTEROL NEBULIZED 2.5 MG/3 ML INHALATION SCH ×3 (07:16→19:52)
[2020-04-29] MEDS: MULTIVITAMINS, THERA 1 EACH TAB PO SCH (08:26)
[2020-04-29] MEDS: PANTOPRAZOLE 40 MG/10 ML VIAL IVP SCH ×2 (08:26→21:27)
[2020-04-29] MEDS: MEROPENEM 1 GM in SODIUM CHLORIDE 0.9% 100 ML IVPB SCH ×2 (08:26→16:43)
[2020-04-29] MEDS: FUROSEMIDE 10 MG/ML 4 ML VIAL IV SCH ×2 (08:26→21:27)
[2020-04-29] MEDS: NYSTATIN 100,000 UNIT/ML SUSP 500,000 UNIT/5 ML CUP PO SCH ×4 (08:26→21:31)
[2020-04-29] MEDS: HEPARIN SODIUM,PORCINE 5,000 UNIT/ML 1 ML VIAL SQ SCH ×2 (08:26→21:27)
--- NOTE | 2020-04-29 09:47 | P.PN ---
Progress Note - Text Progress Note Date: 04/29/20 Patient's also complains of epigastric pain. It is improved from yesterday. On exam vital signs are stable. Abdomen soft. There is mild tenderness in epigastric area. Resolving peritonitis. Patient will continue to receive supportive care.
[2020-04-29 11:15] LABS: Amylase 44 U/L (30-110)
--- NOTE | 2020-04-29 12:05 | PN ---
PROGRESS NOTE DATE OF DICTATION: April 29, 2020 Patient is a 49-year-old pleasant white female admitted to the hospital with acute severe pancreatitis and is gradually improving. She still continues to complain of persistent abdominal pain, but she is tolerating full liquids reasonably well. As per the nursing staff, she did not have any nausea, vomiting. Has been asking for pain medications infrequently. No fever, chills, or night sweats. PHYSICAL EXAMINATION: Appears comfortable. VITAL SIGNS: Stable. Blood pressure is 98/61, pulse rate 90, temperature 98. HEENT examination unremarkable. Conjunctivae pink. Sclerae anicteric. Oral cavity no lesions. NECK no JVD or lymph node enlargement. CHEST was clear to auscultation. HEART: Regular rate and rhythm. ABDOMEN: Soft, it was obese. It is much softer than yesterday. There was some tenderness in the epigastric area. EXTREMITIES: No pedal edema. SKIN no rashes. NEURO: She is alert and oriented x3. No focal deficits. LABS: From today WBC 16.9, hemoglobin 11.2, platelets normal. BUN and creatinine are 12 and 0.5 respectively. Potassium is 3.0, blood sugar 116. IMPRESSION: 1. Acute severe pancreatitis, which is gradually improving. Last CT scan done 2 days ago did show significant peripancreatic inflammatory changes, but no evidence of necrosis. 2. Leukocytosis secondary to severe acute pancreatitis. Doubt infection. However, patient has been on broad-spectrum antibiotics with meropenem. 3. Morbid obesity. 4. History of hypothyroidism. RECOMMENDATIONS: 1. Continue with broad-spectrum antibiotics. 2. Continue with full liquid diet. 3. Monitor labs closely. 4. Continue with symptomatic and supportive care. 5. We will follow with you closely. Thank you for this consultation. MMODL / IJN: [id number] /
[2020-04-29] MEDS: MAGNESIUM SULFATE-D5W PMX 1 GM in DEXTROSE/WATER 1 100ML.BAG IVPB SCH ×2 (13:57→15:07)
[2020-04-29] MEDS: POTASSIUM CHLORIDE ER 20 MEQ TAB.ER PO SCH ×2 (15:08→16:48)
--- NOTE | 2020-04-29 15:39 | PN ---
PROGRESS NOTE DATE OF SERVICE: 04/29/2020 This 49-year-old woman who was admitted with acute severe pancreatitis, also had abdominal pain. The patient ( ) CT scan. Multiple consultants including Gastroenterology Surgery and Infectious Disease following the patient closely. Patient on empiric antibiotics. The patient is slightly mentally challenged. PHYSICAL EXAMINATION: Alert and oriented x3. Pulse 88, blood pressure 108/70, respirations 16, temperature 98.4, pulse ox 97% on room air. HEENT: Conjunctivae normal. Oral mucosa moist. NECK: No jugular venous distention. No lymph node enlargement. CARDIOVASCULAR: S1, S2, muffled. No S3, no S4, RESPIRATORY: Diminished breath sounds at the bases. No rhonchi, no crackles. ABDOMEN: Soft. Mild diffuse distention. Mild diffuse tenderness in the epigastrium. No guarding, no rigidity. No mass felt. Bowel sounds diminished. LEGS: No edema, no swelling. NERVOUS SYSTEM: No focal deficits. LABS: WBC 16.9. Other labs are noted. Total bilirubin is 1.8. Lipase is 430. ASSESSMENT: 1. Acute severe pancreatitis with severe abdominal pain versus inflammatory changes related to acute pancreatitis. 2. Increased WBC. 3. Possible atelectasis. 4. Hypokalemia. 5. History of coronary artery disease. 6. Hypertension. 7. History of fluid overload. 8. Hypothyroidism. 9. History of mentally challenged. 10.History of degenerative joint disease. 11.Obesity with body mass index of 47.6. 12.FULL CODE. RECOMMENDATIONS AND DISCUSSION: Recommend to continue current management and symptomatic treatment. Otherwise, will continue with broad-spectrum IV antibiotics. Cultures are negative so far. Otherwise, we will continue to monitor. Closely follow with multiple consultants. Will repeat urine exam also. IgG3 was elevated to 1.3. Guarded prognosis. Further recommendations to follow. MMODL / IJN: [id number] /
[2020-04-29] MEDS: POTASSIUM BICARBONATE/CIT AC 20 MEQ TABLET.EFF NG-TUBE SCH ×5 (15:49→22:22)
[2020-04-29] MEDS ORDERED: Potassium Replacement Protocol 1 EACH MISC MISCELLANE PRN (20:13)
[2020-04-29] MEDS: LORATADINE 10 MG TAB PO SCH (21:27)
[2020-04-30] MEDS: MEROPENEM 1 GM in SODIUM CHLORIDE 0.9% 100 ML IVPB SCH ×4 (00:59→23:59)
[2020-04-30] MEDS: HYDROcodone/APAP 5-325MG 1 EACH TAB PO PRN ×2 (01:35→20:10)
[2020-04-30] MEDS: LEVOTHYROXINE 50 MCG TAB PO SCH (05:41)
[2020-04-30 05:54] LABS: Basophils # (A) 0.1 k/uL (0-0.2); Basophils % (A) 0 %; Eosinophils # (A) 0.5 k/uL (0-0.7); Eosinophils % (A) 4 %; HCT 35.2 % (34.0-46.0); Lymphocytes # (A) 1.9 k/uL (1.0-4.8); Lymphocytes % (A) 12 %; MCH 26.8 pg (25.0-35.0); MCHC 31.2 g/dL (31.0-37.0); MCV 85.7 fL (80.0-100.0); Mean Platelet Volume 7.6; Monocytes % (A) 7 %; Neutrophils # (A) 11.4 k/uL (1.3-7.7); Neutrophils % (A) 76 %; Platelet Count 325 k/uL (150-450); RBC 4.11 m/uL (3.80-5.40); RDW 13.6 % (11.5-15.5); WBC 15.1 k/uL (3.8-10.6)
--- NOTE | 2020-04-30 06:57 | PN ---
PROGRESS NOTE DATE OF SERVICE: 04/29/2020 REASON FOR FOLLOWUP: Possible gallstone pancreatitis. INTERVAL HISTORY: Patient is currently afebrile. The patient is awake and alert today. She is breathing comfortably. When asked specifically, she denies having any chest pain. No shortness of breath or cough. Abdominal pain is currently controlled. No further nausea, vomiting or diarrhea has been reported. PHYSICAL EXAMINATION: Blood pressure 122/63 with a pulse of 94, temperature 98.5, she is 97% on room air. General description is a middle-aged female lying in bed in no distress. Respiratory system: Unlabored breathing, clear to auscultation anteriorly. Heart S1, S2. Regular rate and rhythm. Abdomen is soft, mildly distended, no guarding or rigidity. LABS: Potassium 3.4, white count was not done today. DIAGNOSTIC IMPRESSION AND PLAN: Patient with elevated white count, source likely gallstone pancreatitis. This patient did show some improvement. CBC will be repeated tomorrow. Continue with meropenem and monitor clinical course closely. MMODL / IJN: [id number] /
[2020-04-30] MEDS: ALBUTEROL NEBULIZED 2.5 MG/3 ML INHALATION SCH ×3 (08:50→21:19)
[2020-04-30] MEDS: PANTOPRAZOLE 40 MG/10 ML VIAL IVP SCH ×2 (10:12→20:10)
[2020-04-30] MEDS: MULTIVITAMINS, THERA 1 EACH TAB PO SCH (10:12)
[2020-04-30] MEDS: HEPARIN SODIUM,PORCINE 5,000 UNIT/ML 1 ML VIAL SQ SCH ×2 (10:12→20:10)
[2020-04-30] MEDS: FUROSEMIDE 10 MG/ML 4 ML VIAL IV SCH ×2 (10:12→20:10)
[2020-04-30] MEDS: NYSTATIN 100,000 UNIT/ML SUSP 500,000 UNIT/5 ML CUP PO SCH ×4 (10:12→20:18)
[2020-04-30 10:58] LABS: African American GFR (CKD) 124.9 (60.0-200.0); Albumin 3.4 g/dL (3.80-4.90); Albumin/Globulin Ratio 1.26 (1.60-3.17); Anion Gap 8.1 mmol/L (4.00-12.00); BUN/Creat Ratio 18.33 Ratio (12.00-20.00); Calcium 8.5 mg/dL (8.7-10.3); Carbon Dioxide 36.9 mmol/L (21.6-31.8); Globulin 2.7 g/dL (1.6-3.3); Magnesium 2.1 mg/dL (1.5-2.4); Non-African American GFR(CKD) 107.8 (60.0-200.0); Potassium 3.3 mmol/L (3.5-5.5); Total Bilirubin 1.2 mg/dL (0.2-1.2); Total Protein 6.1 g/dL (6.2-8.2)
[2020-04-30] MEDS ORDERED: POTASSIUM CHLORIDE ER 20 MEQ TAB.ER PO STA (11:42)
--- NOTE | 2020-04-30 11:43 | P.PN ---
Subjective Progress Note Date: 04/30/20 CHIEF COMPLAINT: Abdominal pain HISTORY OF PRESENT ILLNESS: Patient is being followed for pancreatitis. She is tolerating a full liquid diet. She still reporting epigastric abdominal pain that is worse after eating. She denies any nausea or vomiting. She is afebrile. White count has come down from 16.9-15.1. Potassium is 3.3 magnesium 2.1 AST is 26 ALT is 24 abdominal ultrasound from admission shows no gallstones PHYSICAL EXAM: VITAL SIGNS: Reviewed. GENERAL: Well-developed in no acute distress. HEENT: No sclera icterus. Extraocular movements grossly intact. Moist buccal mucosa. Head is atraumatic, normocephalic. ABDOMEN: Soft. Obese. Tenderness with palpation of the epigastric area. Nondistended. NEUROLOGIC: Alert and oriented. Cranial nerves II through XII grossly intact. ASSESSMENT: 1. Acute pancreatitis PLAN: -Continue supportive care -Continue full liquid diet -Continue antibiotics -Replace potassium Physician Assistant Track Coach note has been reviewed by physician. Signing provider agrees with the documented findings, assessment, and plan of care. Objective - Vital Signs Vital signs: Vital Signs Temp 98.3 F 04/30/20 05:00 Pulse 98 04/30/20 05:00 Resp 20 04/30/20 05:00 BP 106/70 04/30/20 05:00 Pulse Ox 92 L 04/30/20 05:00 Intake & Output 04/29/20 04/30/20 04/30/20 18:59 06:59 18:59 Intake Total 650 Balance 650 Intake: Oral 650 Other: Voiding Method Toilet # Voids 3 3 - Labs CBC & Chem 7: 04/30/20 05:34 04/30/20 05:34 Labs: Abnormal Lab Results - Last 24 Hours (Table) 04/29/20 04/29/20 04/30/20 Range/Units 14:02 19:14 05:34 WBC 15.1 H (3.8-10.6) k/uL Hgb 11.0 L (11.4-16.0) gm/dL Neutrophils # 11.4 H (1.3-7.7) k/uL Potassium 2.7 L* 3.4 L (3.5-5.1) mmol/L Chloride (96-109) mmol/L Carbon Dioxide (21.6-31.8) mmol/L Glucose (70-110) mg/dL Calcium (8.7-10.3) mg/dL Total Protein (6.2-8.2) g/dL Albumin (3.80-4.90) g/dL Albumin/Globulin Ratio (1.60-3.17) g/dL 04/30/20 Range/Units 05:34 WBC (3.8-10.6) k/uL Hgb (11.4-16.0) gm/dL Neutrophils # (1.3-7.7) k/uL Potassium 3.3 L (3.5-5.1) mmol/L Chloride 91 L (96-109) mmol/L Carbon Dioxide 36.9 H (21.6-31.8) mmol/L Glucose 111 H (70-110) mg/dL Calcium 8.5 L (8.7-10.3) mg/dL Total Protein 6.1 L (6.2-8.2) g/dL Albumin 3.40 L (3.80-4.90) g/dL Albumin/Globulin Ratio 1.26 L (1.60-3.17) g/dL
[2020-04-30] MEDS: CHOLECALCIFEROL 1,000 UNIT TAB PO SCH (11:51)
--- NOTE | 2020-04-30 15:57 | P.PN ---
Subjective Progress Note Date: 04/30/20 Principal diagnosis: Acute pancreatitis The patient was seen and examined sitting up at the bedside chair. She states her pain is better. She denies any nausea, vomiting, or diarrhea. The patient had a small hard bowel movement this afternoon. WBC improving, 15.1 today. The patient has been afebrile. She has been on full liquid diet and tolerating well. Objective - Vital Signs Vital signs: Vital Signs Temp 97.5 F L 04/30/20 12:13 Pulse 84 04/30/20 12:14 Resp 19 04/30/20 12:13 BP 109/69 04/30/20 12:13 Pulse Ox 93 L 04/30/20 12:13 Intake & Output 04/29/20 04/30/20 04/30/20 18:59 06:59 18:59 Intake Total 650 Balance 650 Weight 117.934 kg Intake: Oral 650 Other: Voiding Method Toilet # Voids 3 3 - Exam General appearance: The patient is alert, oriented, in no acute distress. Obese. HET: Head is normocephalic and atraumatic. Conjunctiva pink. Sclera anicteric. Neck: Supple without lymphadenopathy. Abdomen: Soft, mild tenderness to palpation, abdomen firm with bowel sounds. No guarding or rigidity. Extremities: Normal skin color and turgor. No pedal edema. Neurological: Alert and oriented. Patient is mentally disabled. - Labs CBC & Chem 7: 04/30/20 05:34 04/30/20 05:34 Labs: Abnormal Lab Results - Last 24 Hours (Table) 04/29/20 04/30/20 04/30/20 Range/Units 19:14 05:34 05:34 WBC 15.1 H (3.8-10.6) k/uL Hgb 11.0 L (11.4-16.0) gm/dL Neutrophils # 11.4 H (1.3-7.7) k/uL Potassium 3.4 L 3.3 L (3.5-5.1) mmol/L Chloride 91 L (96-109) mmol/L Carbon Dioxide 36.9 H (21.6-31.8) mmol/L Glucose 111 H (70-110) mg/dL Calcium 8.5 L (8.7-10.3) mg/dL Total Protein 6.1 L (6.2-8.2) g/dL Albumin 3.40 L (3.80-4.90) g/dL Albumin/Globulin Ratio 1.26 L (1.60-3.17) g/dL Assessment and Plan Assessment: 1. Acute pancreatitis first episode. Patient presented with severe epigastric pain for the last 2 days duration noted to have elevated lipase consistent with acute pancreatitis. She does not have any history of alcohol use. Ultrasound did not show any evidence of gallstones and LFTs are within normal limits which makes it very unlikely we are dealing with biliary pancreatitis. At this time, etiology remains unclear. Today's repeat CT abdomen and pelvis shows worsening inflammatory changes related to acute pancreatitis identified at level pancreas extending inferiorly throughout majority of the abdomen. No well-formed fluid collection noted. 2. Acute pancreatitis with leukocytosis likely related to acute pancreatitis. Patient started on antibiotics. 2. History of hypertension 3. History of hypothyroidism Plan: 1. Advance to low fat diet 2. Will add Senokot daily for constipation 3. Serum IgG4 level obtained to evaluate for autoimmune pancreatitis, normal result 4. Repeat labs in the morning 5. Repeat CBC with diff in morning 6. Continue antibiotics 7. Judicial use of narcotics 8. Increase ambulation 9. We will follow with you closely 10. Patient to follow-up in office after discharge The impression and plan of care has been dictated as directed. Dr. Proctor I performed a history and examination of this patient, discussed the same with the dictator. I agree with the dictator's note ,documented as a scribe. Any additional findings or plans will be noted.
[2020-04-30] MEDS: POTASSIUM CHLORIDE ER 20 MEQ TAB.ER PO SCH ×2 (16:22→20:18)
[2020-04-30] MEDS: SENNOSIDES 8.6 MG TAB PO SCH (16:45)
--- NOTE | 2020-04-30 19:00 | PN ---
PROGRESS NOTE DATE OF SERVICE: 04/30/2020 This 49-year-old woman who was admitted with severe pancreatitis also had abdominal pain. The patient is still complaining of abdominal pain. The patient was started on empiric antibiotics, also. Infectious Disease and Surgery are following the patient closely. WBC is elevated but showing diminishing trend at this time. Potassium is 3.3. Past medical history reviewed. REVIEW OF SYSTEMS: CARDIOVASCULAR SYSTEM: No angina, palpitations. RESPIRATORY SYSTEM: As mentioned earlier. GI: As mentioned earlier. : No dysuria or retention. NERVOUS SYSTEM: No numbness, weakness. CURRENT MEDICATIONS: Reviewed. They include: 1. [place] 5 mg. 2. Xanax. 3. Bumex. 4. Vitamin D3. 5. Lasix. 6. Dilaudid. 7. Synthroid. 8. Claritin. 9. Potassium. 10.Multivitamins. 11.Protonix. 12.K-Dur. PHYSICAL EXAMINATION: Patient is alert and oriented x3. Pulse is 69, blood pressure 109/69, respiration 19, temperature 97.2, pulse ox 93% on room air. HEENT: Conjunctivae normal. NECK: No jugular venous distention. CARDIOVASCULAR SYSTEM: S1, S2 muffled. RESPIRATORY SYSTEM: Breath sounds diminished at the bases. A few scattered rhonchi and crackles. ABDOMEN: Soft, obese, non-tender. No mass palpable. LEGS: No edema. No swelling. NERVOUS SYSTEM: No focal deficit. LABS: WBC 15.1, hemoglobin 11, sodium 136, potassium 3.3. ASSESSMENT: 1. Acute severe pancreatitis with severe abdominal pain versus inflammatory changes related acute pancreatitis. 2. Increased white count. 3. Possible atelectasis. 4. Hypokalemia. 5. History of coronary artery disease. 6. Hypertension. 7. History of fluid overload. 8. Hypothyroidism. 9. History of mentally challenged. 10.History of degenerative joint disease. 11.Obesity with body mass index of 47.6. 12.FULL CODE. RECOMMENDATIONS AND DISCUSSION: I recommend to continue current medications, continue with the monitoring, symptomatic treatment. Add potassium supplement. Continue rest of medications. Empiric antibiotics. The cultures are negative so far. Guarded prognosis. Further recommendations to follow. MMODL / IJN: [id number] /
[2020-04-30] MEDS: LORATADINE 10 MG TAB PO SCH (20:10)
--- NOTE | 2020-05-01 01:23 | PN ---
PROGRESS NOTE DATE OF SERVICE: 04/30/2020 REASON FOR FOLLOWUP: Leukocytosis, likely acute gallstone pancreatitis. INTERVAL HISTORY: The patient is currently afebrile. The patient is breathing comfortably, up in the chair. No chest pain, no cough. No nausea, no vomiting. No abdominal pain or any diarrhea. PHYSICAL EXAMINATION: Blood pressure 118/73 with a pulse of 94, temperature 98.9. She is 94% on room air. General description is a middle-aged female up in the bed in no distress. RESPIRATORY SYSTEM: Unlabored breathing, clear to auscultation anteriorly. HEART: S1, S2. Regular rate and rhythm. ABDOMEN: Soft. Mild tenderness. LABS: White count 15.1. DIAGNOSTIC IMPRESSION AND PLAN: Patient with elevated white count likely acute pancreatitis, possible gallstone related. The patient's white count responded to meropenem, will continue and monitor clinical course closely. MMODL / IJN: [id number] /
[2020-05-01] MEDS: LEVOTHYROXINE 50 MCG TAB PO SCH (05:25)
[2020-05-01 05:41] LABS: Basophils % (A) 0 %; Eosinophils # (A) 0.5 k/uL (0-0.7); Eosinophils % (A) 3 %; HCT 37.6 % (34.0-46.0); HGB 11.9 gm/dL (11.4-16.0); Lymphocytes # (A) 1.5 k/uL (1.0-4.8); Lymphocytes % (A) 11 %; MCH 28.1 pg (25.0-35.0); MCHC 31.6 g/dL (31.0-37.0); MCV 88.9 fL (80.0-100.0); Mean Platelet Volume 7.5; Monocytes # (A) 0.9 k/uL (0-1.0); Monocytes % (A) 6 %; Neutrophils # (A) 10.9 k/uL (1.3-7.7); Neutrophils % (A) 77 %; Platelet Count 304 k/uL (150-450); RBC 4.23 m/uL (3.80-5.40); RDW 13.8 % (11.5-15.5)
[2020-05-01] MEDS: MEROPENEM 1 GM in SODIUM CHLORIDE 0.9% 100 ML IVPB SCH ×3 (08:16→23:48)
[2020-05-01] MEDS: PANTOPRAZOLE 40 MG/10 ML VIAL IVP SCH (08:16)
[2020-05-01] MEDS: POTASSIUM CHLORIDE ER 20 MEQ TAB.ER PO SCH ×2 (08:17→20:18)
[2020-05-01] MEDS: MULTIVITAMINS, THERA 1 EACH TAB PO SCH (08:17)
[2020-05-01] MEDS: FUROSEMIDE 10 MG/ML 4 ML VIAL IV SCH ×2 (08:17→20:18)
[2020-05-01] MEDS: HEPARIN SODIUM,PORCINE 5,000 UNIT/ML 1 ML VIAL SQ SCH ×2 (08:17→20:18)
[2020-05-01] MEDS: SENNOSIDES 8.6 MG TAB PO SCH (08:17)
[2020-05-01] MEDS: NYSTATIN 100,000 UNIT/ML SUSP 500,000 UNIT/5 ML CUP PO SCH ×4 (08:17→23:01)
[2020-05-01] MEDS: ALBUTEROL NEBULIZED 2.5 MG/3 ML INHALATION SCH ×3 (08:24→20:22)
[2020-05-01] MEDS: HYDROcodone/APAP 5-325MG 1 EACH TAB PO PRN (08:31)
[2020-05-01 09:27] LABS: African American GFR (CKD) 124.9 (60.0-200.0); Albumin 3.3 g/dL (3.80-4.90); Albumin/Globulin Ratio 1.14 (1.60-3.17); Anion Gap 11.5 mmol/L (4.00-12.00); BUN/Creat Ratio 18.33 Ratio (12.00-20.00); Calcium 8.5 mg/dL (8.7-10.3); Carbon Dioxide 34.5 mmol/L (21.6-31.8); Globulin 2.9 g/dL (1.6-3.3); Non-African American GFR(CKD) 107.8 (60.0-200.0); Potassium 3.5 mmol/L (3.5-5.5); Total Bilirubin 1.1 mg/dL (0.2-1.2); Total Protein 6.2 g/dL (6.2-8.2)
--- NOTE | 2020-05-01 12:03 | P.PN ---
Subjective Progress Note Date: 05/01/20 CHIEF COMPLAINT: Abdominal pain HISTORY OF PRESENT ILLNESS: Patient is being followed for pancreatitis. She is tolerating a low-fat diet. She still reporting epigastric abdominal pain that is worse after eating. She denies any nausea or vomiting. She is afebrile. WBC 14 lipase 197 PHYSICAL EXAM: VITAL SIGNS: Reviewed. GENERAL: Well-developed in no acute distress. HEENT: No sclera icterus. Extraocular movements grossly intact. Moist buccal mucosa. Head is atraumatic, normocephalic. ABDOMEN: Soft. Obese. Tenderness with palpation of the epigastric area. Nondistended. NEUROLOGIC: Alert and oriented. Cranial nerves II through XII grossly intact. ASSESSMENT: 1. Acute pancreatitis PLAN: -Continue supportive care -No plans for any surgical intervention -Agree with GI recommendations -Continue low-fat diet -Continue antibiotics per ID Physician Technology Lead note has been reviewed by physician. Signing provider agrees with the documented findings, assessment, and plan of care. Objective - Vital Signs Vital signs: Vital Signs Temp 97.8 F 05/01/20 11:11 Pulse 81 05/01/20 11:11 Resp 20 05/01/20 11:11 BP 108/73 05/01/20 11:11 Pulse Ox 92 L 05/01/20 11:11 Intake & Output 04/30/20 05/01/20 05/01/20 18:59 06:59 18:59 Intake Total 480 Output Total 1 Balance -1 480 Weight 117.934 kg Intake: Oral 480 Output: Urine 1 Other: Voiding Method Toilet Toilet # Voids 2 1 # Bowel Movements 1 - Labs CBC & Chem 7: 05/01/20 05:16 05/01/20 05:16 Labs: Abnormal Lab Results - Last 24 Hours (Table) 05/01/20 05/01/20 Range/Units 05:16 05:16 WBC 14.0 H (3.8-10.6) k/uL Neutrophils # 10.9 H (1.3-7.7) k/uL Chloride 94 L (96-109) mmol/L Carbon Dioxide 34.5 H (21.6-31.8) mmol/L Calcium 8.5 L (8.7-10.3) mg/dL AST 36 H (13-35) U/L Albumin 3.30 L (3.80-4.90) g/dL Albumin/Globulin Ratio 1.14 L (1.60-3.17) g/dL Lipase 197 H (14-63) U/L
[2020-05-01] MEDS: CHOLECALCIFEROL 1,000 UNIT TAB PO SCH (13:03)
--- NOTE | 2020-05-01 13:43 | P.PN ---
Subjective Progress Note Date: 05/01/20 Principal diagnosis: Acute pancreatitis Patient was seen and examined at the bedside. She is sitting up in the recliner. She she tolerated her low fat diet. She denies any abdominal pain, nausea, or vomiting. She had a bowel movement yesterday. Objective - Vital Signs Vital signs: Vital Signs Temp 97.8 F 05/01/20 11:11 Pulse 81 05/01/20 11:11 Resp 20 05/01/20 11:11 BP 108/73 05/01/20 11:11 Pulse Ox 92 L 05/01/20 11:11 Intake & Output 04/30/20 05/01/20 05/01/20 18:59 06:59 18:59 Intake Total 480 Output Total 1 Balance -1 480 Weight 117.934 kg Intake: Oral 480 Output: Urine 1 Other: Voiding Method Toilet Toilet # Voids 2 1 # Bowel Movements 1 - Exam General appearance: The patient is alert, oriented, in no acute distress. Obese. HET: Head is normocephalic and atraumatic. Conjunctiva pink. Sclera anicteric. Neck: Supple without lymphadenopathy. Abdomen: Soft, no tenderness to palpation, abdomen firm with bowel sounds. No guarding or rigidity. Extremities: Normal skin color and turgor. No pedal edema. Neurological: Alert and oriented. Patient is mentally disabled. - Labs CBC & Chem 7: 05/01/20 05:16 05/01/20 05:16 Labs: Abnormal Lab Results - Last 24 Hours (Table) 05/01/20 05/01/20 Range/Units 05:16 05:16 WBC 14.0 H (3.8-10.6) k/uL Neutrophils # 10.9 H (1.3-7.7) k/uL Chloride 94 L (96-109) mmol/L Carbon Dioxide 34.5 H (21.6-31.8) mmol/L Calcium 8.5 L (8.7-10.3) mg/dL AST 36 H (13-35) U/L Albumin 3.30 L (3.80-4.90) g/dL Albumin/Globulin Ratio 1.14 L (1.60-3.17) g/dL Lipase 197 H (14-63) U/L Assessment and Plan Assessment: 1. Acute pancreatitis first episode. Patient presented with severe epigastric pain for the last 2 days duration noted to have elevated lipase consistent with acute pancreatitis. She does not have any history of alcohol use. Ultrasound did not show any evidence of gallstones and LFTs are within normal limits which makes it very unlikely we are dealing with biliary pancreatitis. At this time, etiology remains unclear. Today's repeat CT abdomen and pelvis shows worsening inflammatory changes related to acute pancreatitis identified at level pancreas extending inferiorly throughout majority of the abdomen. No well-formed fluid collection noted. 2. Acute pancreatitis with leukocytosis likely related to acute pancreatitis. Patient started on antibiotics. 2. History of hypertension 3. History of hypothyroidism Plan: 1. Advance to low fat diet 2. Will add Senokot daily for constipation 3. Serum IgG4 level obtained to evaluate for autoimmune pancreatitis, normal result 4. Repeat labs in the morning 5. Repeat CBC with diff in morning 6. Continue antibiotics 7. Judicial use of narcotics 8. Increase ambulation 9. We will follow with you closely 10. From a GI standpoint patient may be discharged home. Patient to follow-up in office after discharge The impression and plan of care has been dictated as directed. Dr. Proctor I performed a history and examination of this patient, discussed the same with the dictator. I agree with the dictator's note ,documented as a scribe. Any additional findings or plans will be noted.
[2020-05-01] MEDS: PANTOPRAZOLE 40 MG TABLET PO SCH (17:38)
--- NOTE | 2020-05-01 18:18 | PN ---
PROGRESS NOTE DATE OF SERVICE: 05/01/2020 REASON FOR FOLLOWUP: Leukocytosis, likely gallstone pancreatitis. INTERVAL HISTORY: The patient is currently afebrile. The patient seems to be feeling better, breathing comfortably. Abdominal pain is currently controlled. No vomiting has been reported. No chest pain, shortness of breath or cough. PHYSICAL EXAMINATION: Blood pressure 108/73 with a pulse of 81, temperature 97.8. She is 92% on room air. General description is a middle-aged female lying in bed in no distress. RESPIRATORY SYSTEM: Unlabored breathing. Clear to auscultation anteriorly. HEART: S1, S2. Regular rate and rhythm. ABDOMEN: Soft. No tenderness. LABS: Hemoglobin is 11.9, white count 14, BUN of 11, creatinine 0.6. DIAGNOSTIC IMPRESSION AND PLAN: Patient with leukocytosis which is multifactorial in this patient with a likely component of gallstone pancreatitis. The patient's white count is showing a downward trend. Currently on meropenem; to continue. Finish therapy with oral antibiotic once stable from other concerns. Continue with supportive care. MMODL / IJN: [id number] /
[2020-05-01] MEDS: LORATADINE 10 MG TAB PO SCH (20:18)
[2020-05-02 04:53] LABS: Basophils # (A) 0.1 k/uL (0-0.2); Basophils % (A) 0 %; Eosinophils # (A) 0.5 k/uL (0-0.7); Eosinophils % (A) 4 %; HGB 11.5 gm/dL (11.4-16.0); Hypochromasia Slight; Lymphocytes # (A) 1.5 k/uL (1.0-4.8); Lymphocytes % (A) 11 %; MCH 28.2 pg (25.0-35.0); MCHC 32.1 g/dL (31.0-37.0); Mean Platelet Volume 7.3; Monocytes # (A) 0.8 k/uL (0-1.0); Monocytes % (A) 6 %; Neutrophils # (A) 10.9 k/uL (1.3-7.7); Neutrophils % (A) 78 %; Platelet Count 321 k/uL (150-450); RBC 4.08 m/uL (3.80-5.40); RDW 13.7 % (11.5-15.5)
[2020-05-02] MEDS: LEVOTHYROXINE 50 MCG TAB PO SCH (05:37)
[2020-05-02] MEDS: ALBUTEROL NEBULIZED 2.5 MG/3 ML INHALATION SCH ×2 (07:43→11:03)
[2020-05-02] MEDS: MEROPENEM 1 GM in SODIUM CHLORIDE 0.9% 100 ML IVPB SCH (09:11)
[2020-05-02] MEDS: NYSTATIN 100,000 UNIT/ML SUSP 500,000 UNIT/5 ML CUP PO SCH ×2 (09:13→12:06)
[2020-05-02] MEDS: FUROSEMIDE 10 MG/ML 4 ML VIAL IV SCH (09:13)
[2020-05-02] MEDS: HEPARIN SODIUM,PORCINE 5,000 UNIT/ML 1 ML VIAL SQ SCH (09:13)
[2020-05-02] MEDS: PANTOPRAZOLE 40 MG TABLET PO SCH (09:14)
[2020-05-02] MEDS: POTASSIUM CHLORIDE ER 20 MEQ TAB.ER PO SCH (09:14)
[2020-05-02] MEDS: MULTIVITAMINS, THERA 1 EACH TAB PO SCH (09:14)
[2020-05-02] MEDS: SENNOSIDES 8.6 MG TAB PO SCH (09:14)
[2020-05-02 09:30] LABS: African American GFR (CKD) 132.6 (60.0-200.0); Albumin 3.3 g/dL (3.80-4.90); Albumin/Globulin Ratio 1.14 (1.60-3.17); Anion Gap 11.2 mmol/L (4.00-12.00); Calcium 8.5 mg/dL (8.7-10.3); Carbon Dioxide 32.8 mmol/L (21.6-31.8); Globulin 2.9 g/dL (1.6-3.3); Non-African American GFR(CKD) 114.4 (60.0-200.0); Potassium 3.7 mmol/L (3.5-5.5); Total Bilirubin 1.2 mg/dL (0.3-1.2); Total Protein 6.2 g/dL (6.2-8.2)
[2020-05-02] MEDS: HYDROcodone/APAP 5-325MG 1 EACH TAB PO PRN (10:38)
--- NOTE | 2020-05-02 10:54 | P.PN ---
Subjective Progress Note Date: 05/02/20 CHIEF COMPLAINT: Abdominal pain HISTORY OF PRESENT ILLNESS: Patient seen with Dr. Ramsey. Patient is being followed for pancreatitis. She is tolerating a low-fat diet. She denies any abdominal pain today. She denies any nausea or vomiting. She is afebrile. WBC 14 AST 41 ALT 30 PHYSICAL EXAM: VITAL SIGNS: Reviewed. GENERAL: Well-developed in no acute distress. HEENT: No sclera icterus. Extraocular movements grossly intact. Moist buccal mucosa. Head is atraumatic, normocephalic. ABDOMEN: Soft. Obese. Nondistended. NEUROLOGIC: Alert and oriented. Cranial nerves II through XII grossly intact. ASSESSMENT: 1. Acute pancreatitis PLAN: -Continue supportive care -No plans for any surgical intervention -Agree with GI recommendations -Continue low-fat diet -Continue antibiotics per ID -Patient can be discharge from surgical standpoint Physician Check Weigher note has been reviewed by physician. Signing provider agrees with the documented findings, assessment, and plan of care. Objective - Vital Signs Vital signs: Vital Signs Temp 97.9 F 05/02/20 04:39 Pulse 89 05/02/20 07:53 Resp 18 05/02/20 04:39 BP 124/72 05/02/20 04:39 Pulse Ox 97 05/02/20 04:39 Intake & Output 05/01/20 05/02/20 05/02/20 18:59 06:59 18:59 Intake Total 337 600 Output Total 250 Balance 87 600 Intake: Intake, IV Titration 100 Amount Meropenem 1 gm In Sodium 100 Chloride 0.9% 100 ml @ 33 .3 mls/hr IVPB Q8HR [facility] Rx#:[id number] Oral 237 600 Output: Urine 250 Other: Voiding Method Toilet Toilet Toilet # Voids 1 1 # Bowel Movements 1 - Labs CBC & Chem 7: 05/02/20 04:26 05/02/20 04:26 Labs: Abnormal Lab Results - Last 24 Hours (Table) 05/02/20 05/02/20 Range/Units 04:26 04:26 WBC 14.0 H (3.8-10.6) k/uL Neutrophils # 10.9 H (1.3-7.7) k/uL Chloride 95 L (96-109) mmol/L Carbon Dioxide 32.8 H (21.6-31.8) mmol/L Creatinine 0.5 L (0.6-1.5) mg/dL BUN/Creatinine Ratio 24.00 H (12.00-20.00) Ratio Calcium 8.5 L (8.7-10.3) mg/dL AST 41 H (13-35) U/L Albumin 3.30 L (3.80-4.90) g/dL Albumin/Globulin Ratio 1.14 L (1.60-3.17) g/dL
--- NOTE | 2020-05-02 11:09 | P.PN ---
Subjective This is a pleasant 49 years old female with multiple medical problems as below including hypertension and mentally challenged, presents because of abdominal pain and vomiting, found to have acute severe pancreatitis, workup has been unrevealing for a cause of pancreatitis as patient has no history of drinking alcohol, liver ultrasound could not account for cause for acute pancreatitis. IgG was negative . Patient has been followed closely by several consultants including GI, surgery and infectious disease teams. Patient was treated with bowel rest, IV fluids, antibiotics and pain medication and patient showed interval improvement. todaypatient is awake and alert, pleasant and tolerating diet well. Abdominal pain is minimal or resolved as patient rated 1/10 today. patient is having bowel movement as she states. Also she passes gases. Patient will be discharged within 24-48 hours once she is cleared for discharge by GI team and other consultants Objective - Vital Signs Vital signs: Vital Signs Temp 97.8 F 05/01/20 11:11 Pulse 81 05/01/20 11:11 Resp 20 05/01/20 11:11 BP 108/73 05/01/20 11:11 Pulse Ox 92 L 05/01/20 11:11 Intake & Output 04/30/20 05/01/20 05/01/20 18:59 06:59 18:59 Intake Total 480 337 Output Total 1 250 Balance -1 480 87 Weight 117.934 kg Intake: Intake, IV Titration 100 Amount Meropenem 1 gm In Sodium 100 Chloride 0.9% 100 ml @ 33 .3 mls/hr IVPB Q8HR [facility] Rx#:[id number] Oral 480 237 Output: Urine 1 250 Other: Voiding Method Toilet Toilet # Voids 2 1 # Bowel Movements 1 - Exam GENERAL: The patient is alert and oriented x3, not in any acute distress. Obese HEENT: Pupils are round and equally reacting to light. EOMI. No scleral icterus. No conjunctival pallor. Normocephalic, atraumatic. No pharyngeal erythema. No thyromegaly. CARDIOVASCULAR: S1 and S2 present. No murmurs, rubs, or gallops. PULMONARY: Chest is clear to auscultation, no wheezing or crackles. ABDOMEN: Soft, nontender, nondistended, normoactive bowel sounds. No palpable organomegaly. MUSCULOSKELETAL: No joint swelling or deformity. EXTREMITIES: No cyanosis, clubbing, or pedal edema. NEUROLOGICAL: Gross neurological examination did not reveal any focal deficits. SKIN: No rashes. no petechiae. - Labs CBC & Chem 7: 05/02/20 04:26 05/02/20 04:26 Labs: Abnormal Lab Results - Last 24 Hours (Table) 05/01/20 05/01/20 Range/Units 05:16 05:16 WBC 14.0 H (3.8-10.6) k/uL Neutrophils # 10.9 H (1.3-7.7) k/uL Chloride 94 L (96-109) mmol/L Carbon Dioxide 34.5 H (21.6-31.8) mmol/L Calcium 8.5 L (8.7-10.3) mg/dL AST 36 H (13-35) U/L Albumin 3.30 L (3.80-4.90) g/dL Albumin/Globulin Ratio 1.14 L (1.60-3.17) g/dL Lipase 197 H (14-63) U/L Assessment and Plan Assessment: -Acute pancreatitis of unknown etiology, gallstone pancreatitis is suspected -History of coronary artery disease -Hypertension -Fluid overload -Hypothyroidism -mentally challenged -Degenerative joint disease -Morbid obesity with BMI of 47.6 Plan: This is a pleasant 41 at his old female who presents with pancreatitis. Continue with pain management and antibiotics. Follow-up recommendation by GI, surgery and ID team Labs and medication were reviewed.. Continue same treatment. Continue with symptomatic treatment. Resume home medication. Monitor lytes and vitals. DVT and GI prophylaxis. Further recommendations of the clinical course of the patient DVT prophylaxis: Subcutaneous heparin GI Prophylaxis: Ppi
[2020-05-02 11:57] VITALS: BP 107/64; PULSE 93; RESP 20; TEMP 99.3
[2020-05-02] MEDS: CHOLECALCIFEROL 1,000 UNIT TAB PO SCH (12:06)
--- NOTE | 2020-05-02 12:19 | P.PN ---
Subjective Progress Note Date: 05/02/20 Principal diagnosis: Acute pancreatitis Patient was seen and examined at the bedside. She is getting cleaned up with assistance. She is smiling, states she has no abdominal pain, no nausea or vomiting. She had a bowel movement today. She has been tolerating her regular diet. She has remained afebrile. There've been no acute changes through the night. Objective - Vital Signs Vital signs: Vital Signs Temp 99.3 F 05/02/20 11:16 Pulse 90 05/02/20 11:19 Resp 20 05/02/20 11:16 BP 107/64 05/02/20 11:16 Pulse Ox 92 L 05/02/20 11:16 Intake & Output 05/01/20 05/02/20 05/02/20 18:59 06:59 18:59 Intake Total 337 600 Output Total 250 Balance 87 600 Intake: Intake, IV Titration 100 Amount Meropenem 1 gm In Sodium 100 Chloride 0.9% 100 ml @ 33 .3 mls/hr IVPB Q8HR [facility] Rx#:[id number] Oral 237 600 Output: Urine 250 Other: Voiding Method Toilet Toilet Toilet # Voids 1 1 # Bowel Movements 1 - Exam General appearance: The patient is alert, oriented, in no acute distress. Obese. HET: Head is normocephalic and atraumatic. Conjunctiva pink. Sclera anicteric. Neck: Supple without lymphadenopathy. Abdomen: Soft, no tenderness to palpation, abdomen with bowel sounds. No guarding or rigidity. Extremities: Normal skin color and turgor. No pedal edema. Neurological: Alert and oriented. Patient is mentally disabled. - Labs CBC & Chem 7: 05/02/20 04:26 05/02/20 04:26 Labs: Abnormal Lab Results - Last 24 Hours (Table) 05/02/20 05/02/20 Range/Units 04:26 04:26 WBC 14.0 H (3.8-10.6) k/uL Neutrophils # 10.9 H (1.3-7.7) k/uL Chloride 95 L (96-109) mmol/L Carbon Dioxide 32.8 H (21.6-31.8) mmol/L Creatinine 0.5 L (0.6-1.5) mg/dL BUN/Creatinine Ratio 24.00 H (12.00-20.00) Ratio Calcium 8.5 L (8.7-10.3) mg/dL AST 41 H (13-35) U/L Albumin 3.30 L (3.80-4.90) g/dL Albumin/Globulin Ratio 1.14 L (1.60-3.17) g/dL Assessment and Plan Assessment: 1. Acute pancreatitis first episode. Patient presented with severe epigastric pain for the last 2 days duration noted to have elevated lipase consistent with acute pancreatitis. She does not have any history of alcohol use. Ultrasound did not show any evidence of gallstones and LFTs are within normal limits which makes it very unlikely we are dealing with biliary pancreatitis. At this time, etiology remains unclear. Today's repeat CT abdomen and pelvis shows worsening inflammatory changes related to acute pancreatitis identified at level pancreas extending inferiorly throughout majority of the abdomen. No well-formed fluid collection noted. 2. Acute pancreatitis with leukocytosis likely related to acute pancreatitis. Patient started on antibiotics. 2. History of hypertension 3. History of hypothyroidism Plan: 1. Advance to low fat diet 2. Will add Senokot daily for constipation 3. Serum IgG4 level obtained to evaluate for autoimmune pancreatitis, normal result 4. Judicial use of narcotics 5. Increase ambulation 6. We will follow with you closely 7. From a GI standpoint patient may be discharged home. Patient to follow-up in office after discharge The impression and plan of care has been dictated as directed. Dr. Proctor I performed a history and examination of this patient, discussed the same with the dictator. I agree with the dictator's note ,documented as a scribe. Any additional findings or plans will be noted.
--- NOTE | 2020-05-02 15:48 | PN ---
PROGRESS NOTE DATE OF SERVICE: 05/02/2020 REASON FOR FOLLOWUP: Possible acute gallstone pancreatitis. INTERVAL HISTORY: The patient was seen on rounds this morning. The patient overall has been feeling better, breathing comfortably. No chest pain, shortness of breath or cough. No abdominal pain. No further vomiting. PHYSICAL EXAMINATION: Blood pressure 107/64 with a pulse of 93, temperature 99.3. She is 92% on room air. General description is a middle-aged female up in the bed in no distress. RESPIRATORY SYSTEM: Unlabored breathing. Clear to auscultation anteriorly. HEART: S1, S2. Regular rate and rhythm. ABDOMEN: Soft. No tenderness. LABS: Hemoglobin 11.5, white count 14, BUN of 12, creatinine 0.5. DIAGNOSTIC IMPRESSION AND PLAN: Patient with elevated white count. Source is likely pancreatitis, possible gallstone. She seems to have shown clinical improvement. Currently on meropenem with antibiotic will be switched over to Augmentin for a short course and close outpatient followup. MMODL / IJN: [id number] /
== END 2020-05-02 18:56 | disposition home or self-care (01) | DRG 439 ==
LOC: EC 17:18 → 6NMEDSUR 21:01
PROVIDERS: ADMIT Hospitalist; ATTEND Hospitalist
DX: K85.10 Biliary acute pancreatitis without necrosis or infection (principal); Z68.42 Body mass index [BMI] 45.0-49.9, adult; J98.11 Atelectasis; E66.01 Morbid (severe) obesity due to excess calories; I25.10 Atherosclerotic heart disease of native coronary artery without angina pectoris; I10 Essential (primary) hypertension; M19.90 Unspecified osteoarthritis, unspecified site; E87.70 Fluid overload, unspecified; Z20.828 Contact with and (suspected) exposure to other viral communicable diseases; D64.9 Anemia, unspecified; E03.9 Hypothyroidism, unspecified; K59.00 Constipation, unspecified; E87.6 Hypokalemia; F79 Unspecified intellectual disabilities; Z79.899 Other long term (current) drug therapy; Z79.890 Hormone replacement therapy; Z88.1 Allergy status to other antibiotic agents; Z88.8 Allergy status to other drugs, medicaments and biological substances; Z98.890 Other specified postprocedural states; Z82.49 Family history of ischemic heart disease and other diseases of the circulatory system; Z80.8 Family history of malignant neoplasm of other organs or systems; Z83.438 Family history of other disorder of lipoprotein metabolism and other lipidemia
CPT/HCPCS: 36415; 71045; 71250; 74176; 74177; 76705; 80053; 80061; 81001; 81025; 82150; 82787; 83690; 83735; 83880; 84132; 84484; 85025; 85610; 86038; 87635; 93005; 94640; 94760; 96361; 96374; 96375; 99285

== ENCOUNTER → 2021-03-28 | Outpatient (CLI) | payer MEDICARE, OTHER ==
--- NOTE | 2021-03-29 13:08 | MM ---
Reason for exam: screening (asymptomatic). History: Patient is nulliparous. Family history of breast cancer in aunt at age 70. Taking hormonal contraceptives for 5 years. Physical Findings: A clinical breast exam by your physician is recommended on an annual basis and results should be correlated with mammographic findings. MG 3D Screening Mammo W/Cad Bilateral CC and MLO view(s) were taken. No prior studies available for comparison. The breast tissue is almost entirely fat. There is no discrete abnormality. No significant changes when compared with prior studies. ASSESSMENT: Negative, BI-RAD 1 RECOMMENDATION: Routine screening mammogram of both breasts in 1 year.
== END | disposition home or self-care (01) ==
LOC: EEVIPCON 02-21 11:00 → RADMAMWWP 10:11 → EEVIPCON 10:11
PROVIDERS: ATTEND Family Medicine
DX: Z12.31 Encounter for screening mammogram for malignant neoplasm of breast (principal); Z80.3 Family history of malignant neoplasm of breast; Z79.3 Long term (current) use of hormonal contraceptives
CPT/HCPCS: 77063; 77067

== ENCOUNTER → 2023-12-23 | Outpatient (CLI) | payer MEDICARE, OTHER ==
--- NOTE | 2023-12-23 12:14 | CA ---
Transthoracic Echo Report Name: Jodee Mcnamara Age: 53 Gender: F : 1970 Exam Date: 12/23/2023 11:26 Exam Location: [facility] Ht (in): 61 Wt (lb): 300 Ordering Physician: Rea Donovan DO Attending/Referring Phys: Marya Patel [facility] Communication Equipment Repairer Lena Vega RDCS Procedure CPT: Indications: R60.0 LOCALIZED EDEMA Cardiac Hx: Technical Quality: Very technically difficult study Contrast 1: Definity Total Dose (mL): 2 Contrast 2: Total Dose (mL): MEASUREMENTS (Male / Female) Normal Values 2D ECHO LV Diastolic Volume MOD BP 61.9 cm??? 67 - 155 / 56 - 104 cm??? LV Systolic Volume MOD BP 22.0 cm??? 22 - 58 / 19 - 49 cm??? LV Ejection Fraction MOD BP 64.5 % >= 55 % LV Cardiac Index MOD BP 1268.3 cm???/min???m??? LV Diastolic Volume MOD 4C 64.8 cm??? LV Systolic Volume MOD 4C 21.1 cm??? LV Ejection Fraction MOD 4C 67.4 % LV Cardiac Index MOD 4C 1387.9 cm???/min???m??? LV Diastolic Length 4C 7.1 cm LV Systolic Length 4C 5.6 cm LV Diastolic Volume MOD 2C 54.6 cm??? LV Systolic Volume MOD 2C 22.9 cm??? LV Ejection Fraction MOD 2C 58.0 % LV Cardiac Index MOD 2C 1007.2 cm???/min???m??? LV Diastolic Length 2C 6.6 cm LV Systolic Length 2C 5.6 cm DOPPLER AV Peak Velocity 125.4 cm/s AV Peak Gradient 6.3 mmHg AV Mean Velocity 94.1 cm/s AV Mean Gradient 3.8 mmHg AV Velocity Time Integral 21.7 cm LVOT Peak Velocity 107.5 cm/s LVOT Peak Gradient 4.6 mmHg LVOT Velocity Time Integral 18.0 cm MV Area PHT 4.8 cm??? Mitral E Point Velocity 62.8 cm/s Mitral A Point Velocity 63.2 cm/s Mitral E to A Ratio 1.0 MV Deceleration Time 157.7 ms PV Peak Velocity 104.2 cm/s PV Peak Gradient 4.3 mmHg FINDINGS Left Ventricle Left ventricular ejection fraction is estimated at 55-60 %. Left ventricular cavity size normal. No obvious regional wall motion abnormalities. No evidence of LV thrombus on contrast imaging. Right Ventricle Right ventricle not well visualized. Right Atrium Right atrium not well visualized. Left Atrium Normal left atrial size by visual. Mitral Valve Structurally normal mitral valve. No mitral stenosis, regurgitation or prolapse. Aortic Valve Aortic valve not well visualized. No aortic valve stenosis or regurgitation. Tricuspid Valve Structurally normal tricuspid valve. No tricuspid stenosis, regurgitation or prolapse. Pulmonic Valve Pulmonic valve not well visualized. No pulmonic stenosis. No pulmonic regurgitation. Pericardium No pericardial effusion. Aorta Aortic root and proximal ascending aorta not well visualized. CONCLUSIONS Limited study due to technical reasons. Left ventricular ejection fraction is estimated at 55-60 %. No obvious regional wall motion abnormalities. No evidence of LV thrombus on contrast imaging. Previewed by: Dr Luis Anand (Electronically Signed) Final Date: 23 Dec 2023 12:13
== END | disposition home or self-care (01) ==
LOC: RADECHMAIN 10:50
PROVIDERS: ATTEND Family Medicine
DX: R60.0 Localized edema (principal)
CPT/HCPCS: 93306; Q9957

== ENCOUNTER 2024-07-10 14:26 | Emergency (ER) | payer MEDICARE, OTHER ==
--- NOTE | 2024-07-10 14:57 | ED ---
Extremity Problem HPI - General Source: patient, family, RN notes reviewed Mode of arrival: ambulatory Limitations: no limitations - History of Present Illness MD Complaint: extremity pain, extremity swelling <Katerin Pyle - Last Filed: 07/10/24 14:56> <Kathy Torrez - Last Filed: 07/10/24 23:15> - General Chief complaint: Extremity Problem,Nontraumatic Stated complaint: Both Leg Swelling Time Seen by Provider: 07/10/24 14:35 - History of Present Illness Initial comments: Quick Note: This is a 53-year-old female who presents to the emergency department for bilateral lower extremity swelling. States that it started last week. She thought that she had been bitten by something on the back of one of her legs. She saw her primary care provider and was started on Keflex, which she has been on for 3 days now. Family is concerned that it is not getting any better. States that the legs also appear warm and red. Denies any fevers. States that they are somewhat painful. Denies any chest pain or shortness of breath. (Katerin Pyle) 53-year-old female who presents emergency department for bilateral lower extremity swelling. States that it started last week. She was seen by her primary care who started her on Keflex. She has taken this medication for 3 days now. Her mother was concerned that it was not getting any better and ther efore they took her to an urgent care today. Urgent care told her that she had to go to the hospital to be evaluated. No history of congestive heart failure. No history of DVT or PE. No chest pain or shortness of breath. Swelling is symmetric. She had been on Bumex previously in the past for swelling however mother states that she has not taken this in several years. She denies pain in the extremities. No fevers. No other alleviating, precipitating or modifying factors (Kathy Torrez) - Related Data Home Medications Medication Instructions Recorded Confirmed Levothyroxine Sodium [Synthroid] 50 mcg PO DAILY 03/03/16 04/22/20 Cetirizine HCl [Zyrtec] 10 mg PO HS 02/13/17 04/22/20 Cholecalciferol [Vitamin D3 (25 2,000 unit PO MOTUWETHFR 04/22/20 04/22/20 Mcg = 1000 Iu)] Medroxyprogesterone Acetate 150 mg IM Q90D 04/22/20 04/22/20 [Depo-Provera] Potassium Chloride ER [K-Dur 10] 10 meq PO DAILY PRN 04/22/20 04/22/20 Bumetanide [Bumex] 1 mg PO DAILY PRN 04/23/20 04/23/20 Previous Rx's Medication Instructions Recorded Amoxic-Pot Clav 875-125Mg 1 tab PO Q12HR #14 tab 05/02/20 [Augmentin 875-125] Bumetanide [Bumex] 1 mg PO DAILY PRN #20 tablet 07/10/24 Clindamycin [Cleocin] 150 mg PO Q6H #28 capsule 07/10/24 Allergies Allergy/AdvReac Type Severity Reaction Status Date / Time bacitracin Allergy Rash/Hives Verified 07/10/24 15:05 [From Neosporin ([id number])] bacitracin zinc Allergy Rash/Hives Verified 07/10/24 15:05 [From Neosporin ([id number])] levofloxacin [From Levaquin] Allergy Rash/Hives Verified 07/10/24 15:05 neomycin sulfate Allergy Rash/Hives Verified 07/10/24 15:05 [From Neosporin ([id number])] polymyxin B Allergy Rash/Hives Verified 07/10/24 15:05 [From Neosporin ([id number])] coffee (Coffea arabica) AdvReac Diarrhea Verified 07/10/24 15:12 Review of Systems ROS Other: All systems not noted in ROS Statement are negative. <Katerin Pyle - Last Filed: 07/10/24 14:56> ROS Other: All systems not noted in ROS Statement are negative. <Kathy Torrez - Last Filed: 07/10/24 23:15> ROS Statement: Those systems with pertinent positive or pertinent negative responses have been documented in the HPI. Past Medical History Past Medical History: Coronary Artery Disease (CAD), Hypertension, Thyroid Disorder Additional Past Medical History / Comment(s): mentally impared History of Any Multi-Drug Resistant Organisms: None Reported Past Surgical History: Orthopedic Surgery Additional Past Surgical History / Comment(s): Fx Lt ankle-sx, skin lesions removed back and slin lesion removed from rt. butler Past Anesthesia/Blood Transfusion Reactions: No Reported Reaction Past Psychological History: No Psychological Hx Reported Smoking Status: Never smoker Past Alcohol Use History: None Reported Past Drug Use History: None Reported - Past Family History Father Family Medical History: Cancer, Hyperlipidemia, Hypertension, Myocardial Infarction ([place]) Additional Family Medical History / Comment(s): skin CA nose Mother Family Medical History: Hyperlipidemia, Hypertension <Katerin Pyle - Last Filed: 07/10/24 14:56> General Exam <Katerin Pyle - Last Filed: 07/10/24 14:56> General appearance: alert, in no apparent distress Head exam: Present: atraumatic, normocephalic, normal inspection Eye exam: Present: normal appearance, PERRL, EOMI. Absent: scleral icterus, conjunctival injection, periorbital swelling ENT exam: Present: normal exam, mucous membranes moist Neck exam: Present: normal inspection. Absent: tenderness, meningismus, lymphadenopathy Respiratory exam: Present: normal lung sounds bilaterally. Absent: respiratory distress, wheezes, rales, rhonchi, stridor Cardiovascular Exam: Present: regular rate, normal rhythm, normal heart sounds. Absent: systolic murmur, diastolic murmur, rubs, gallop, clicks GI/Abdominal exam: Present: soft, normal bowel sounds. Absent: distended, tenderness, guarding, rebound, rigid Extremities exam: Present: full ROM, normal capillary refill, pedal edema (1+). Absent: tenderness, joint swelling, calf tenderness Back exam: Present: normal inspection Neurological exam: Present: alert, oriented X3, CN II-XII intact Psychiatric exam: Present: normal affect, normal mood Skin exam: Present: warm, dry, intact, normal color. Absent: rash <Kathy Torrez - Last Filed: 07/10/24 23:15> - General Exam Comments Initial Comments: Visual Physical Exam Vital signs reviewed General: Well-appearing, nontoxic, no acute distress. Head: Normocephalic, atraumatic Eyes: PERRLA, EOMI ENT: Airway patent Chest: Nonlabored breathing Skin: No visual rash, normal skin tone Neuro: Alert and oriented 3 Musculoskeletal: No gross abnormalities (Katerin Pyle) Course Vital Signs 07/10/24 07/10/24 15:06 20:04 Temperature 98.1 F Pulse Rate 105 H 89 Respiratory 20 20 Rate Blood Pressure 171/96 139/91 O2 Sat by Pulse 98 96 Oximetry Medical Decision Making <Katerin Pyle - Last Filed: 07/10/24 14:56> - Lab Data Result diagrams: 07/10/24 17:24 07/10/24 17:24 <Kathy Torrez - Last Filed: 07/10/24 23:15> - Medical Decision Making I performed the QuickNote portion of this chart. Signed Katerin Pyle PA-C. (Katerin Pyle) Was pt. sent in by a medical professional or institution (JOSSELIN Daley, HOLIDAY DETECTOR OPERATOR, urgent care, hospital, or [facility]...) When possible be specific @ -Was sent in from urgent care Did you speak to anyone other than the patient for history (EMS, parent, family, police, friend...)? What history was obtained from this source @ -Spoke with the mother for history Did you review nursing and triage notes (agree or disagree)? Why? @ -I reviewed and agree with nursing and triage notes Were old charts reviewed (outside hosp., previous admission, EMS record, old EKG, old radiological studies, urgent care reports/EKG's, [facility] records)? Report findings @ -No old charts were reviewed Differential Diagnosis (chest pain, altered mental status, abdominal pain women, abdominal pain men, vaginal bleeding, weakness, fever, dyspnea, syncope, headache, dizziness, GI bleed, back pain, seizure, CVA, palpatations, mental health, musculoskeletal)? @ -Cellulitis, DVT, heart failure EKG interpreted by me (3pts min.). @ -Not done X-rays interpreted by me (1pt min.). @ -None done CT interpreted by me (1pt min.). @ -None done U/S interpreted by me (1pt. min.). @ -None done What testing was considered but not performed or refused? (CT, X-rays, U/S, labs)? Why? @ -None What meds were considered but not given or refused? Why? @ -None Did you discuss the management of the patient with other professionals (professionals i.e. Dr., PA, HOLIDAY DETECTOR OPERATOR, lab, RT, psych nurse, public health social worker, customs house broker, teacher, chief marketing officer, family service caseworker)? Give summary @ -No Was smoking cessation discussed for >3mins.? @ -No Was critical care preformed (if so, how long)? @ -No Were there social determinants of health that impacted care today? How? (Homelessness, low income, unemployed, alcoholism, drug addiction, transportation, low edu. Level, literacy, decrease access to med. care, fci, r ehab)? @ -No Was there de-escalation of care discussed even if they declined (Discuss DNR or withdrawal of care, Hospice)? DNR status @ -No What co-morbidities impacted this encounter? (DM, HTN, Smoking, COPD, CAD, Cancer, CVA, ARF, Chemo, Hep., AIDS, mental health diagnosis, sleep apnea, morbid obesity)? @ -None Was patient admitted / discharged? Hospital course, mention meds given and route, prescriptions, significant lab abnormalities, going to OR and other pertinent info. @ -Upon arrival patient seen and evaluated in hallway 10. Thorough history and physical exam was performed. Patient does have equal bilateral lower extremity swelling. There is minimal associated redness. Extremities appear consistent with chronic venous stasis due to brawny edema. IV was established and labo ratory studies are conducted. Results are discussed with the patient. I did give her a dose of Unasyn while awaiting labs. I do feel that the patient requires diuresis. She was given 1 mg IV Bumex. The patient's lower extremities are wrapped with Nish bandages. Patient is informed to keep her legs elevated. She is to take Bumex as needed for swelling. I do recommend that she takes it for the next several days. She will follow-up with his primary care doctor in 2 to 4 days. Return for any new or worsening symptoms to include chest pain or shortness of breath. I did recommend that they follow-up with the wound care clinic to ensure healing of the lower extremities. I will adjust the patient's antibiotic to clindamycin however infection is less likely suspected. Patient and her mother were agreeable to this plan the patient was discharged home in stable condition Undiagnosed new problem with uncertain prognosis? @ -No Drug Therapy requiring intensive monitoring for toxicity (Heparin, Nitro, Insulin, Cardizem)? @ -No Were any procedures done? @ -No Diagnosis/symptom? @ -Bilateral lower extremity edema, acute on chronic, venous stasis, possible cellulitis Acute, or Chronic, or Acute on Chronic? @ -Acute on chronic Uncomplicated (without systemic symptoms) or Complicated (systemic symptoms)? @ -Complicated Side effects of treatment? @ -No Exacerbation, Progression, or Severe Exacerbation? @ -No Poses a threat to life or bodily function? How? (Chest pain, [place], [place], pneumonia, PE, COPD, DKA, ARF, appy, cholecystitis, CVA, Diverticulitis, Homicidal, Suicidal, threat to staff... and all critical care pts) @ -No (Kathy Torrez) - Lab Data Lab Results 07/10/24 07/10/24 07/10/24 Range/Units 17:24 17:24 17:24 WBC 11.6 H (3.8-10.6) k/uL RBC 4.74 (3.80-5.40) m/uL Hgb 13.6 (11.4-16.0) gm/dL Hct 43.3 (34.0-46.0) % MCV 91.4 (80.0-100.0) fL MCH 28.8 (25.0-35.0) pg MCHC 31.5 (31.0-37.0) g/dL RDW 13.6 (11.5-15.5) % Plt Count 331 (150-450) k/uL MPV 8.7 Neutrophils % 71 % Lymphocytes % 19 % Monocytes % 4 % Eosinophils % 5 % Basophils % 0 % Neutrophils # 8.2 H (1.3-7.7) k/uL Lymphocytes # 2.2 (1.0-4.8) k/uL Monocytes # 0.5 (0-1.0) k/uL Eosinophils # 0.6 (0-0.7) k/uL Basophils # 0.1 (0-0.2) k/uL Hypochromasia Slight ESR 108 H (0-30) mm/Hr Sodium 140 (137-145) mmol/L Potassium 5.2 H (3.5-5.1) mmol/L Chloride 102 (98-107) mmol/L Carbon Dioxide 29 (22-30) mmol/L Anion Gap 9 mmol/L BUN 18 H (7-17) mg/dL Creatinine 0.75 (0.52-1.04) mg/dL Est GFR (CKD-EPI)AfAm >90 (>60 ml/min/1.73 sqM) Est GFR (CKD-EPI)NonAf >90 (>60 ml/min/1.73 sqM) Glucose 89 (74-99) mg/dL Plasma Lactic Acid Lyndon 1.6 (0.7-2.0) mmol/L Calcium 9.9 (8.4-10.2) mg/dL Total Bilirubin 1.3 (0.2-1.3) mg/dL AST 31 (14-36) U/L ALT 15 (4-34) U/L Alkaline Phosphatase 95 (38-126) U/L C-Reactive Protein 4.7 H (<1.0) mg/dL NT-Pro-B Natriuret Pep 121 pg/mL Total Protein 8.3 H (6.3-8.2) g/dL Albumin 4.5 (3.5-5.0) g/dL Disposition <Katerin Pyle - Last Filed: 07/10/24 14:56> Is patient prescribed a controlled substance at d/c from ED?: No Time of Disposition: 19:16 <Kathy Torrez - Last Filed: 07/10/24 23:15> Clinical Impression: Swelling of lower extremity, Venous stasis Disposition: HOME SELF-CARE Condition: Stable Instructions (If sedation given, give patient instructions): Stasis Dermatitis (ED) Additional Instructions: Please take the antibiotic as instructed starting tomorrow. Stop the Keflex. Also take the Bumex daily as needed for swelling in the legs. Keep them elevated. They need to be wrapped with a compression dressing. Follow-up with the wound care clinic as they will be able to follow the healing process until it is finished. Return for any new or worsening symptoms Prescriptions: Bumetanide [Bumex] 1 mg PO DAILY PRN #20 tablet PRN Reason: Edema Clindamycin [Cleocin] 150 mg PO Q6H #28 capsule Referrals: Rea oDnovan DO [Primary Care Provider] - 1-2 days [facility] [NON-STAFF] - 1-2 days
[2024-07-10 15:11] VITALS: RESP 20; TEMP 98.1
[2024-07-10 17:35] LABS: Basophils # (A) 0.1 k/uL (0-0.2); Basophils % (A) 0 %; Eosinophils # (A) 0.6 k/uL (0-0.7); Eosinophils % (A) 5 %; HCT 43.3 % (34.0-46.0); HGB 13.6 gm/dL (11.4-16.0); Hypochromasia Slight; Lymphocytes # (A) 2.2 k/uL (1.0-4.8); Lymphocytes % (A) 19 %; MCH 28.8 pg (25.0-35.0); MCHC 31.5 g/dL (31.0-37.0); MCV 91.4 fL (80.0-100.0); Mean Platelet Volume 8.7; Monocytes # (A) 0.5 k/uL (0-1.0); Monocytes % (A) 4 %; Neutrophils # (A) 8.2 k/uL (1.3-7.7); Neutrophils % (A) 71 %; Platelet Count 331 k/uL (150-450); RBC 4.74 m/uL (3.80-5.40); RDW 13.6 % (11.5-15.5); WBC 11.6 k/uL (3.8-10.6)
[2024-07-10 17:50] LABS: ALT 15 U/L (4-34); African American GFR (CKD) >90 (>60 ml/min/1.73 sqM); Albumin 4.5 g/dL (3.5-5.0); Anion Gap 9 mmol/L; Blood Urea Nitrogen 18 mg/dL (7-17); Calcium 9.9 mg/dL (8.4-10.2); Carbon Dioxide 29 mmol/L (22-30); Chloride 102 mmol/L (98-107); Glucose 89 mg/dL (74-99); Non-African American GFR(CKD) >90 (>60 ml/min/1.73 sqM); Sodium 140 mmol/L (137-145); Total Bilirubin 1.3 mg/dL (0.2-1.3); Total Protein 8.3 g/dL (6.3-8.2)
[2024-07-10] MEDS: AMPICILLIN-SULBACTAM 3 GM in SODIUM CHLORIDE 0.9% 100 ML IVPB STA (17:55)
[2024-07-10 17:57] LABS: NT-Pro-B-Type Natriuretic Pept 121 pg/mL
[2024-07-10 18:18] LABS: AST 31 U/L (14-36); Potassium 5.2 mmol/L (3.5-5.1)
[2024-07-10 18:19] LABS: Alkaline Phosphatase 95 U/L (38-126)
[2024-07-10 18:29] LABS: C Reactive Protein 4.7 mg/dL (<1.0)
[2024-07-10] MEDS: BUMETANIDE 0.25 MG/ML 4 ML VIAL IVP STA (19:56)
[2024-07-10 20:13] VITALS: BP 139/91; PULSE 89
[2024-07-10 22:46] LABS: Erythrocyte Sedimentation Rate 108 mm/Hr (0-30)
== END 2024-07-10 20:12 | disposition home or self-care (01) ==
LOC: EC 14:26
DX: I87.8 Other specified disorders of veins (principal); Z88.1 Allergy status to other antibiotic agents; Z88.8 Allergy status to other drugs, medicaments and biological substances; Z91.018 Allergy to other foods
CPT/HCPCS: 36415; 83880; 80053; 85652; 83605; 85025; 86140; 99283; 96365; 96366; 96375; J0295; J1939

== ENCOUNTER 2024-07-13 20:26 | Emergency (ER) | payer MEDICARE, OTHER ==
[2024-07-13 20:40] VITALS: TEMP 97.5
[2024-07-13 20:56] LABS: Glucose,Whole Blood 144 mg/dL (70-110)
[2024-07-13 21:14] LABS: Basophils # (A) 0.1 k/uL (0-0.2); Basophils % (A) 0 %; Eosinophils # (A) 0.4 k/uL (0-0.7); Eosinophils % (A) 3 %; HCT 41.7 % (34.0-46.0); HGB 13.4 gm/dL (11.4-16.0); Hypochromasia Slight; Lymphocytes # (A) 2.7 k/uL (1.0-4.8); Lymphocytes % (A) 19 %; MCH 29.1 pg (25.0-35.0); MCHC 32.2 g/dL (31.0-37.0); MCV 90.4 fL (80.0-100.0); Mean Platelet Volume 7.6; Monocytes # (A) 0.6 k/uL (0-1.0); Monocytes % (A) 4 %; Neutrophils # (A) 10.1 k/uL (1.3-7.7); Neutrophils % (A) 71 %; Platelet Count 369 k/uL (150-450); RBC 4.61 m/uL (3.80-5.40); RDW 13.5 % (11.5-15.5); WBC 14.2 k/uL (3.8-10.6)
[2024-07-13 21:26] LABS: ALT 16 U/L (4-34); AST 25 U/L (14-36); African American GFR (CKD) 77 (>60 ml/min/1.73 sqM); Albumin 4.4 g/dL (3.5-5.0); Alkaline Phosphatase 91 U/L (38-126); Anion Gap 10 mmol/L; Blood Urea Nitrogen 19 mg/dL (7-17); Calcium 9.2 mg/dL (8.4-10.2); Carbon Dioxide 29 mmol/L (22-30); Chloride 101 mmol/L (98-107); Glucose 150 mg/dL (74-99); Non-African American GFR(CKD) 67 (>60 ml/min/1.73 sqM); Potassium 4.6 mmol/L (3.5-5.1); Sodium 140 mmol/L (137-145); Total Protein 8.4 g/dL (6.3-8.2)
[2024-07-13] MEDS: MECLIZINE 12.5 MG TAB PO STA (22:38)
--- NOTE | 2024-07-13 22:46 | ED ---
Dizziness HPI - General Chief Complaint: Dizziness Stated Complaint: dizziness Time Seen by Provider: 07/13/24 21:29 Source: patient, family Mode of arrival: wheelchair Limitations: no limitations - History of Present Illness Initial Comments: Patient is a 53-year-old woman accompanied by her mother. Most of the history comes from patient's mother who states that they had been seen and started on antibiotic for cellulitis and that the patient has been feeling dizzy over the course of the day. Patient denies headache. No chest pain or dyspnea. Patient not able to well-characterized the symptoms. MD Complaint: dizziness Onset/Timin -: days(s) Timing: gradual onset History of Same: No History of Trauma: No Worsens With: movement Associated Symptoms: denies other symptoms - Related Data Home Medications Medication Instructions Recorded Confirmed Levothyroxine Sodium [Synthroid] 50 mcg PO DAILY 03/03/16 04/22/20 Cetirizine HCl [Zyrtec] 10 mg PO HS 02/13/17 04/22/20 Cholecalciferol [Vitamin D3 (25 2,000 unit PO MOTUWETHFR 04/22/20 04/22/20 Mcg = 1000 Iu)] Medroxyprogesterone Acetate 150 mg IM Q90D 04/22/20 04/22/20 [Depo-Provera] Potassium Chloride ER [K-Dur 10] 10 meq PO DAILY PRN 04/22/20 04/22/20 Bumetanide [Bumex] 1 mg PO DAILY PRN 04/23/20 04/23/20 Previous Rx's Medication Instructions Recorded Amoxic-Pot Clav 875-125Mg 1 tab PO Q12HR #14 tab 05/02/20 [Augmentin 875-125] Bumetanide [Bumex] 1 mg PO DAILY PRN #20 tablet 07/10/24 Clindamycin [Cleocin] 150 mg PO Q6H #28 capsule 07/10/24 Bumetanide [Bumex] 1 mg PO DAILY PRN #20 tablet 07/11/24 clindamycin HCL 300 mg PO QID #28 cap 07/11/24 Allergies Allergy/AdvReac Type Severity Reaction Status Date / Time bacitracin Allergy Rash/Hives Verified 07/13/24 20:36 [From Neosporin ([id number])] bacitracin zinc Allergy Rash/Hives Verified 07/13/24 20:36 [From Neosporin ([id number])] levofloxacin [From Levaquin] Allergy Rash/Hives Verified 07/13/24 20:36 neomycin sulfate Allergy Rash/Hives Verified 07/13/24 20:36 [From Neosporin ([id number])] polymyxin B Allergy Rash/Hives Verified 07/13/24 20:36 [From Neosporin ([id number])] coffee (Coffea arabica) AdvReac Diarrhea Verified 07/13/24 20:36 Review of Systems ROS Statement: Those systems with pertinent positive or pertinent negative responses have been documented in the HPI. ROS Other: All systems not noted in ROS Statement are negative. Constitutional: Denies: fever, chills, weakness Eyes: Denies: vision change ENT: Denies: hearing loss Respiratory: Denies: cough, dyspnea Cardiovascular: Denies: chest pain, syncope Gastrointestinal: Denies: abdominal pain, vomiting, diarrhea Genitourinary: Denies: dysuria Musculoskeletal: Denies: back pain Skin: Denies: rash Neurological: Denies: headache, weakness Past Medical History Past Medical History: Coronary Artery Disease (CAD), Hypertension, Thyroid Disorder Additional Past Medical History / Comment(s): mentally impaired History of Any Multi-Drug Resistant Organisms: None Reported Past Surgical History: Orthopedic Surgery Additional Past Surgical History / Comment(s): Fx Lt ankle-sx, skin lesions removed back and slin lesion removed from rt. butler Past Anesthesia/Blood Transfusion Reactions: No Reported Reaction Past Psychological History: No Psychological Hx Reported Smoking Status: Never smoker Past Alcohol Use History: None Reported Past Drug Use History: None Reported - Past Family History Father Family Medical History: Cancer, Hyperlipidemia, Hypertension, Myocardial Infarction ([place]) Additional Family Medical History / Comment(s): skin CA nose Mother Family Medical History: Hyperlipidemia, Hypertension General Exam Limitations: no limitations General appearance: alert, in no apparent distress Head exam: Present: atraumatic, normocephalic Eye exam: Present: normal appearance. Absent: scleral icterus, conjunctival injection ENT exam: Present: mucous membranes dry Neck exam: Present: normal inspection Respiratory exam: Present: normal lung sounds bilaterally. Absent: respiratory distress, wheezes, rales, rhonchi, stridor, accessory muscle use Cardiovascular Exam: Present: regular rate, normal rhythm, normal heart sounds. Absent: systolic murmur, diastolic murmur, rubs, gallop GI/Abdominal exam: Present: soft. Absent: distended, tenderness, guarding, rebound, rigid, mass Extremities exam: Present: normal inspection, normal capillary refill, pedal edema. Absent: calf tenderness Back exam: Present: normal inspection. Absent: CVA tenderness (R), CVA tenderness (L) Neurological exam: Present: alert Skin exam: Present: warm, dry, intact, normal color. Absent: rash Course Vital Signs 07/13/24 07/13/24 07/14/24 20:36 23:01 02:31 Temperature 97.5 F L Pulse Rate 106 H 101 H 88 Respiratory 20 15 16 Rate Blood Pressure 134/81 137/87 112/73 O2 Sat by Pulse 95 93 L 94 L Oximetry EKG Findings - EKG Results: EKG: interpreted by ERMD, sinus rhythm EKG shows: tachycardia (Rate 104 bpm) - Blocks, [place], Hypertrophy, ST Abn: QRS axis and voltage: low voltage (<0.5 MV total QRS and <1.0 MV in each precordial lead) Repolarization changes or abnormalities: nonspecific abnormality, ST segment, and/or T wave Medical Decision Making - Medical Decision Making Was pt. sent in by a medical professional or institution (JOSSELIN Daley, [employer]CH[employer], urgent care, hospital, or [facility]...) When possible be specific @ -[No] Did you speak to anyone other than the patient for history (EMS, parent, family, police, friend...)? What history was obtained from this source @ -[No] Did you review nursing and triage notes (agree or disagree)? Why? @ -[I reviewed and agree with nursing and triage notes] Were old charts reviewed (outside hosp., previous admission, EMS record, old EKG, old radiological studies, urgent care reports/EKG's, [facility] records)? Report findings @ -[No old charts were reviewed] Differential Diagnosis (chest pain, altered mental status, abdominal pain women, abdominal pain men, vaginal bleeding, weakness, fever, dyspnea, syncope, headache, dizziness, GI bleed, back pain, seizure, CVA, palpatations, mental health, musculoskeletal)? @ -[not applicable] EKG interpreted by me (3pts min.). @ -[As above] X-rays interpreted by me (1pt min.). @ -[None done] CT interpreted by me (1pt min.). @ -[None done] U/S interpreted by me (1pt. min.). @ -[None done] What testing was considered but not performed or refused? (CT, X-rays, U/S, labs)? Why? @ -[None] What meds were considered but not given or refused? Why? @ -[None] Did you discuss the management of the patient with other professionals (professionals i.e. , PA, OUTBOARD [employer]OR MECHANIC, lab, RT, psych nurse, social media marketer, full charge bookkeeper, teacher, public relations officer, case management coordinator)? Give summary @ -[No] Was smoking cessation discussed for >3mins.? @ -[No] Was critical care preformed (if so, how long)? @ -[No] Were there social determinants of health that impacted care today? How? (Homelessness, low income, unemployed, alcoholism, drug addiction, transp ortation, low edu. Level, literacy, decrease access to med. care, assisted, rehab)? @ -[No] Was there de-escalation of care discussed even if they declined (Discuss DNR or withdrawal of care, Hospice)? DNR status @ -[No] What co-morbidities impacted this encounter? (DM, HTN, Smoking, COPD, CAD, Cancer, CVA, ARF, Chemo, Hep., AIDS, mental health diagnosis, sleep apnea, morbid obesity)? @ -[None] Was patient admitted / discharged? Hospital course, mention meds given and route, prescriptions, significant lab abnormalities, going to OR and other pertinent info. @ -[Patient is 53-year-old woman here with complaint of dizziness. She has recently started treatment for cellulitis and patient's mother believes that the antibiotic may have contributed. Here the patient is mildly tachycardic and di d have slightly low pulse oximetry. D-dimer was obtained that is borderline elevated. Discussed these findings with patient's mother who states that she believes that the patient would benefit from going home and resting. Discussed that if there is any further concern they would need to return to have CT scan. Patient not having dyspnea. Denies chest pain. Undiagnosed new problem with uncertain prognosis? @ -[No] Drug Therapy requiring intensive monitoring for toxicity (Heparin, Nitro, In sulin, Cardizem)? @ -[No] Were any procedures done? @ -[No] Diagnosis/symptom? @ -[ acute dizziness Acute, or Chronic, or Acute on Chronic? @ -[Acute Uncomplicated (without systemic symptoms) or Complicated (systemic symptoms)? @ -[Uncomplicated Side effects of treatment? @ -[No] Exacerbation, Progression, or Severe Exacerbation? @ -[No] Poses a threat to life or bodily function? How? (Chest pain, [place], [place], pneumonia, PE, COPD, DKA, ARF, appy, cholecystitis, CVA, Diverticulitis, Homicidal, Suicidal, threat to staff... and all critical care pts) @ -[There is risk but low at this point they will have close follow-up All treatments are based on ideal body weight as in ED triage - Lab Data Result diagrams: 07/13/24 20:59 07/13/24 20:59 Lab Results 07/13/24 07/13/24 07/13/24 Range/Units 20:55 20:59 20:59 WBC 14.2 H (3.8-10.6) k/uL RBC 4.61 (3.80-5.40) m/uL Hgb 13.4 (11.4-16.0) gm/dL Hct 41.7 (34.0-46.0) % MCV 90.4 (80.0-100.0) fL MCH 29.1 (25.0-35.0) pg MCHC 32.2 (31.0-37.0) g/dL RDW 13.5 (11.5-15.5) % Plt Count 369 (150-450) k/uL MPV 7.6 Neutrophils % 71 % Lymphocytes % 19 % Monocytes % 4 % Eosinophils % 3 % Basophils % 0 % Neutrophils # 10.1 H (1.3-7.7) k/uL Lymphocytes # 2.7 (1.0-4.8) k/uL Monocytes # 0.6 (0-1.0) k/uL Eosinophils # 0.4 (0-0.7) k/uL Basophils # 0.1 (0-0.2) k/uL Hypochromasia Slight D-Dimer (<0.60) mg/L FEU Sodium 140 (137-145) mmol/L Potassium 4.6 (3.5-5.1) mmol/L Chloride 101 (98-107) mmol/L Carbon Dioxide 29 (22-30) mmol/L Anion Gap 10 mmol/L BUN 19 H (7-17) mg/dL Creatinine 0.98 (0.52-1.04) mg/dL Est GFR (CKD-EPI)AfAm 77 (>60 ml/min/1.73 sqM) Est GFR (CKD-EPI)NonAf 67 (>60 ml/min/1.73 sqM) Glucose 150 H (74-99) mg/dL POC Glucose (mg/dL) 144 H (70-110) mg/dL POC Glu Grain Cleaner ID Kay Julián Calcium 9.2 (8.4-10.2) mg/dL Total Bilirubin 1.0 (0.2-1.3) mg/dL AST 25 (14-36) U/L ALT 16 (4-34) U/L Alkaline Phosphatase 91 (38-126) U/L Total Protein 8.4 H (6.3-8.2) g/dL Albumin 4.4 (3.5-5.0) g/dL 07/13/24 Range/Units 22:48 WBC (3.8-10.6) k/uL RBC (3.80-5.40) m/uL Hgb (11.4-16.0) gm/dL Hct (34.0-46.0) % MCV (80.0-100.0) fL MCH (25.0-35.0) pg MCHC (31.0-37.0) g/dL RDW (11.5-15.5) % Plt Count (150-450) k/uL MPV Neutrophils % % Lymphocytes % % Monocytes % % Eosinophils % % Basophils % % Neutrophils # (1.3-7.7) k/uL Lymphocytes # (1.0-4.8) k/uL Monocytes # (0-1.0) k/uL Eosinophils # (0-0.7) k/uL Basophils # (0-0.2) k/uL Hypochromasia D-Dimer 0.72 H (<0.60) mg/L FEU Sodium (137-145) mmol/L Potassium (3.5-5.1) mmol/L Chloride (98-107) mmol/L Carbon Dioxide (22-30) mmol/L Anion Gap mmol/L BUN (7-17) mg/dL Creatinine (0.52-1.04) mg/dL Est GFR (CKD-EPI)AfAm (>60 ml/min/1.73 sqM) Est GFR (CKD-EPI)NonAf (>60 ml/min/1.73 sqM) Glucose (74-99) mg/dL POC Glucose (mg/dL) (70-110) mg/dL POC Glu Grain Cleaner ID Calcium (8.4-10.2) mg/dL Total Bilirubin (0.2-1.3) mg/dL AST (14-36) U/L ALT (4-34) U/L Alkaline Phosphatase (38-126) U/L Total Protein (6.3-8.2) g/dL Albumin (3.5-5.0) g/dL Disposition Clinical Impression: Dizziness Disposition: HOME SELF-CARE Condition: Good Instructions (If sedation given, give patient instructions): Dizziness (ED) Is patient prescribed a controlled substance at d/c from ED?: No Referrals: Rea Donovan DO [Primary Care Provider] - 1-2 days
[2024-07-14] MEDS: IBUPROFEN 600 MG TAB PO STA (01:23)
[2024-07-14] MEDS: ACETAMINOPHEN TAB 325 MG TAB PO STA (01:24)
--- NOTE | 2024-07-14 01:36 | CT ---
EXAM: CT Head Without Intravenous Contrast CLINICAL HISTORY: ITS.REASON CT Reason: headache TECHNIQUE: Axial computed tomography images of the head/brain without intravenous contrast. CTDI is 49.2 mGy and DLP is 1214.4 mGy-cm. This CT exam was performed using one or more of the following dose reduction techniques: automated exposure control, adjustment of the mA and/or kV according to patient size, and/or use of iterative reconstruction technique. COMPARISON: CT Head dated 03/03/16 FINDINGS: Brain: Unremarkable. No hemorrhage. No significant white matter disease. No edema. Ventricles: Unremarkable. No ventriculomegaly. Bones/joints: Unremarkable. No acute fracture. Soft tissues: Unremarkable. Sinuses: Unremarkable as visualized. No acute sinusitis. Mastoid air cells: Unremarkable as visualized. No mastoid effusion. IMPRESSION: No evidence of acute intracranial abnormality.
[2024-07-14] MEDS: traMADol 50 MG STARTER PACK 3 TAB BTL PO STA (02:25)
[2024-07-14 02:32] VITALS: BP 112/73; PULSE 88; RESP 16
== END 2024-07-14 02:32 | disposition home or self-care (01) ==
LOC: EC 20:26
DX: R42 Dizziness and giddiness (principal); Z88.1 Allergy status to other antibiotic agents; Z91.018 Allergy to other foods; Z91.048 Other nonmedicinal substance allergy status; Z88.8 Allergy status to other drugs, medicaments and biological substances
CPT/HCPCS: 36415; 70450; 80053; 85025; 85379; 93005; 99284

== ENCOUNTER → 2024-10-17 | Outpatient (CLI) | payer MEDICARE, OTHER ==
--- NOTE | 2024-10-17 13:44 | XR ---
EXAMINATION TYPE: XR lumbar spine 2 or 3V DATE OF EXAM: 10/17/2024 CLINICAL INDICATION: Female, 54 years old with history of M533 SAC PRAMOD DIS, pain TECHNIQUE: Frontal, lateral, and oblique images of the lumbar spine are obtained. COMPARISON: None FINDINGS: There are 5 lumbar type vertebral bodies identified. The lumbar spine shows grade 1 anter olisthesis L4 on L5. Vertebral body heights and disk space heights are within normal limits. The ov erlying soft tissue appears unremarkable. IMPRESSION: As above. [facility], , 10/17/2024 1:42 PM
== END | disposition home or self-care (01) ==
LOC: RADXRYALE 13:18
PROVIDERS: ATTEND Nurse Practitioner
DX: M43.16 Spondylolisthesis, lumbar region (principal); M53.3 Sacrococcygeal disorders, not elsewhere classified
CPT/HCPCS: 72100